=== PATIENT | male | born 1945 | race Caucasian/White ===

== ENCOUNTER → 2017-08-30 | Outpatient (CLI) | payer BC ==
[~2017-08-30] MED LIST: ASPCH81; ATEN-173; BSP5; NAPR1TAB48; RANI75TA7; VYT1010
== END | disposition home or self-care (01) ==
LOC: C.PATHSPEC 17:52
PROVIDERS: ATTEND Plastic Surgery
DX: L72.0 Epidermal cyst (principal)

== ENCOUNTER 2018-11-02 17:48 | Inpatient (IN) ==
[2018-11-02] MEDS ORDERED: ONDANSETRON INJ 2 MG/ML 2 ML VIAL IV STA ×2 (18:04→21:11)
[2018-11-02] MEDS: HYDROmorphone INJ 1 MG/ML SYRINGE IV PRN ×2 (18:13→20:04)
[2018-11-02 18:24] LABS: Basophils # (auto) 0.01 K/uL (0-0.2); Basophils % (auto) 0.1 %; Eosinophils # (auto) 0.06 K/uL (0-0.5); Eosinophils % (auto) 0.5 %; Hematocrit (blood only) 43.9 % (42-52); Hemoglobin 15.6 g/dL (14.0-18.0); Immature Granulocytes # (auto) 0.03 K/uL (0.00-0.02); Immature Granulocytes % (auto) 0.2 %; Lymphocytes # (auto) 1.26 K/uL (1.2-3.4); Lymphocytes % (auto) 9.9 %; Mean Corpuscular Hgb Conc 35.5 g/dL (32-36); Mean Corpuscular Volume 91.8 fL (80-100); Monocytes # (auto) 0.66 K/uL (0.11-0.59); Monocytes % (auto) 5.2 %; Neutrophils # (auto) 10.66 K/uL (1.4-6.5); Neutrophils % (auto) 84.1 %; Platelet Count 197 K/uL (130-400); RDW Coefficient of Variation 12.3 % (11.5-14.5); RDW Standard Deviation 41.6 fL (36.4-46.3); Red Blood Count 4.78 M/uL (4.7-6.1); White Blood Count 12.68 K/uL (4.8-10.8)
[2018-11-02 18:44] LABS: Albumin Level 3.9 gm/dl (3.4-5.0); BUN Creatinine Ratio 12.9 (10-20); Est GFR (African American) 58.3; Est GFR (Non-African American) 50.3; Potassium 4.3 mmol/L (3.5-5.1)
[2018-11-02 18:47] LABS: Albumin Globulin Ratio 1.1 (0.9-2); Globulin 3.5 gm/dl (2.5-4.0); Total Protein 7.4 gm/dl (6.4-8.2)
--- NOTE | 2018-11-02 19:12 | CT Scan Report ---
ABDOMEN AND PELVIS CT WITHOUT CONTRAST CT DOSE: 666.87 mGy.cm HISTORY: mid abd pain TECHNIQUE: Multiaxial CT images of the abdomen and pelvis were performed without contrast. A dose lo wering technique was utilized adhering to the principles of ALARA. COMPARISON STUDY: None. FINDINGS: Mild dependent changes seen at the lung bases. No pneumoperitoneum. No pneumatosis. Postste rnotomy changes. The heart is mildly enlarged. Tiny fat-containing umbilical hernia. Small fat-contai julia right inguinal hernia. The unenhanced liver, gallbladder, spleen, adrenal glands, and pancreas a re unremarkable. No retroperitoneal lymphadenopathy. Calcified plaque within the normal caliber abdom inal aorta. No renal stones or hydronephrosis. Normal bladder. Colonic diverticulosis. No evidence fo r diverticulitis. Multiple dilated and fluid-filled loops of proximal to mid small bowel with a focal transition point within the right midabdomen best seen on image 303. The bowel loops are dilated up to 4.6 cm. Therefore, this is consistent with a small bowel obstruction at the level of the distal je junum. The appendix not identified and may be surgically absent. IMPRESSION: 1. Small bowel obstruction with the transition point located at the distal jejunum within the right m id abdomen as described above. This favors an adhesion. 2. Colonic diverticulosis. No evidence for diverticulitis. 3. No renal stones or hydronephrosis. Electronically signed by: Perez Fernandez M.D. 11/02/2018 7:11 PM
--- NOTE | 2018-11-02 19:54 | Emergency Department Note ---
Entered by Lesley Raya acting as a scribe for Elliott Gardner MD ED Provider Note CHIEF COMPLAINT: Abdominal pain HISTORY OF PRESENT ILLNESS: The patient is a 73 year old male with a history of a CABG x 3, CAD, and ruptured spleen who presents to the Emergency Room with complaints of worsening periumbilical abdominal pain starting around noon today. The patient reports that the onset of his abdominal pain was followed by diarrhea, 4 episodes of vomiting, left kidney pain, and slight lightheadedness. He currently rates his abdominal pain a 9/10 and states that he has not taken anything for his pain. He notes that he has experienced similar symptoms in the past but is unsure of their etiology. He denies any recent sick contact. Pt denies LOC, headache, fevers, chills, diaphoresis, visual changes, neck pain , chest pain, breathing difficulties, nausea, back pain, melena, hematochezia, urinary symptoms, numbness, weakness, lymphadenopathy, rash, swollen glands, or other complaints. REVIEW OF SYSTEMS: See HPI for pertinent positives and negatives. A total of ten systems were reviewed and were otherwise negative. PMHx/PSHx: CABG x 3, coronary artery disease, ruptured spleen. SOCIAL HISTORY: Patient lives at home. PHYSICAL EXAM: GENERAL: Awake, alert, uncomfortable-appearing, in no distress HENT: Normocephalic, atraumatic. Oropharynx unremarkable. EYES: Normal conjunctiva. Sclera non-icteric. NECK: Inspection normal. Non-tender. Supple. No nuchal rigidity. FROM. No masses. RESPIRATORY: Clear to auscultation. No wheezes. No rales. Normal respiratory effort. CARDIAC: Normal rate. Borderline bradycardic rhythm. No murmurs. No rubs. Extremities warm and well perfused. Pulses equal. No JVD. GI: Soft, non-distended. No rebound. No masses. Moderate left lower quadrant, left upper quadrant, and right upper quadrant tenderness. Significant periumbilical tenderness. Guarding. RECTAL: Deferred. MUSCULOSKELETAL: Atraumatic. Chest examination reveals no tenderness. The back is symmetrical on inspection without obvious abnormality. There is no CVA tenderness to palpation. No joint edema. LOWER EXTREMITIES: Calves are equal size bilaterally and non-tender. No edema. No discoloration. NEURO: Normal sensorium. No sensory or motor deficits noted. SKIN: No rash or jaundice noted. EMERGENCY DEPARTMENT COURSE: 1802: Past medical records reviewed. The patient was evaluated in room C12B, and a complete history and physical examination were performed. 1911: I checked on the patient and updated him on his test results. 1916: I reviewed the patient's case with Dr. Govea - [facility]. Dr. Govea recommends an NG tube, NPO, and admission to medicine. He stated that he will see the patient in consultation. 2010: I reviewed the patient's case with Dr. Isaacs - Hospitalist, [facility]. Dr. Isaacs will evaluate the patient for further management. MEDICAL DECISION MAKING: Triage Nursing notes reviewed. The patient's presentation and history were concerning for abdominal pain. Etiologies such as appendicitis, diverticulitis, obstruction, inflammatory bowel disease, renal colic, PUD, biliary pathology, pancreatitis, mesenteric ischemia, aortic pathology, infections, genitourinary, UTI, perforated viscus, as well as others were entertained. Patient was evaluated. He was quite tender and uncomfortable. He was given IV Zofran and Dilaudid. His ECG did not show any acute ischemic change. The patient felt better after medications. He had a mild leukocytosis on CBC. Remainder of labs are unremarkable. The patient underwent CT imaging and this revealed a bowel obstruction. I did consult with Dr. Govea of general surgery. He recommended NG tube placement admission to medicine. He will see him in consultation. A consultation was placed with the [facility]ist service. Patient was evaluated in the ER for further management. IMPRESSION: Small bowel obstruction PLAN: Admit The scribe's documentation has been prepared under my direction and personally reviewed by me in its entirety. I confirm that the note above accurately reflects all work, treatment, procedures, and medical decision making performed by me. Impression & Plan Small bowel obstruction Past Med/Surg History Medical History Ruptured spleen Coronary artery disease (Chronic) Anxiety GERD (gastroesophageal reflux disease) Hyperlipidemia Hypertension Surgical History S/P CABG (coronary artery bypass graft) (Resolved) History of right inguinal hernia repair History of rotator cuff surgery S/P splenectomy Social History marital status: Current Living Situation: Spouse current occupational status: retired Feels Safe at Home: Yes Safety Concerns: Feels Safe At This Time Smoking Status: Former smoker Do You Dip or Chew Tobacco: No Second Hand Exposure: No Tobacco Cessation Education Requested by Patient: No Hx Alcohol Use: No Hx Substance Use: No Beliefs That Will Affect Care: None Preferred Language: [place] Communication Ability: Effective 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 Results & Data Vital Signs Vital Signs - 24 hr 11/02/18 17:50 11/02/18 18:16 11/02/18 18:18 Temperature 37 C Temperature Source Oral Sepsis Recent Fever Within 48 Hours No Sepsis Action Taken by Nursing No Action Required Pulse Rate 59 L 54 L 58 L Pulse Rate [Apical] Pulse Rate [Right Finger] Pulse Rhythm Regular Regular Pulse Rhythm [Apical] Pulse Rhythm [Right Finger] Pulse Strength Normal Pulse Strength [Right Finger] Respiratory Rate 22 24 20 Respiratory Effort / Characteristics Non-Labored Spontaneous Respiratory Depth Normal Respiratory Pattern Regular Blood Pressure 147/75 H Blood Pressure [Left Arm] Blood Pressure Mean 99 Blood Pressure Mean [Left Arm] Blood Pressure Position [Left Arm] Pulse Oximetry 94 95 94 Oxygen Delivery Method Room Air Nasal Cannula Room Air Oxygen Flow Rate 11/02/18 18:55 11/02/18 18:56 11/02/18 19:00 Temperature Temperature Source Sepsis Recent Fever Within 48 Hours Sepsis Action Taken by Nursing Pulse Rate 78 76 79 Pulse Rate [Apical] 73 Pulse Rate [Right Finger] Pulse Rhythm Pulse Rhythm [Apical] Regular Pulse Rhythm [Right Finger] Pulse Strength Pulse Strength [Right Finger] Respiratory Rate 24 20 22 Respiratory Effort / Characteristics Non-Labored Spontaneous Respiratory Depth Normal Respiratory Pattern Regular Blood Pressure 138/73 Blood Pressure [Left Arm] 138/73 Blood Pressure Mean 94 Blood Pressure Mean [Left Arm] 94 Blood Pressure Position [Left Arm] Semi-fowlers Pulse Oximetry 96 Oxygen Delivery Method Nasal Cannula Nasal Cannula Nasal Cannula Oxygen Flow Rate 3 11/02/18 19:01 11/02/18 19:30 11/02/18 19:31 Temperature Temperature Source Sepsis Recent Fever Within 48 Hours Sepsis Action Taken by Nursing Pulse Rate 77 67 76 Pulse Rate [Apical] Pulse Rate [Right Finger] Pulse Rhythm Pulse Rhythm [Apical] Pulse Rhythm [Right Finger] Pulse Strength Pulse Strength [Right Finger] Respiratory Rate 21 30 H 27 H Respiratory Effort / Characteristics Respiratory Depth Respiratory Pattern Blood Pressure 130/67 153/59 H Blood Pressure [Left Arm] Blood Pressure Mean 88 90 Blood Pressure Mean [Left Arm] Blood Pressure Position [Left Arm] Pulse Oximetry 89 L 96 96 Oxygen Delivery Method Nasal Cannula Nasal Cannula Nasal Cannula Oxygen Flow Rate 11/02/18 19:32 11/02/18 20:00 11/02/18 20:01 Temperature Temperature Source Sepsis Recent Fever Within 48 Hours Sepsis Action Taken by Nursing Pulse Rate 74 70 57 L Pulse Rate [Apical] Pulse Rate [Right Finger] Pulse Rhythm Pulse Rhythm [Apical] Pulse Rhythm [Right Finger] Pulse Strength Pulse Strength [Right Finger] Respiratory Rate 23 21 21 Respiratory Effort / Characteristics Respiratory Depth Respiratory Pattern Blood Pressure 122/75 Blood Pressure [Left Arm] Blood Pressure Mean 90 Blood Pressure Mean [Left Arm] Blood Pressure Position [Left Arm] Pulse Oximetry 96 95 Oxygen Delivery Method Nasal Cannula Nasal Cannula Oxygen Flow Rate 11/02/18 20:02 11/02/18 20:30 11/02/18 20:31 Temperature Temperature Source Sepsis Recent Fever Within 48 Hours Sepsis Action Taken by Nursing Pulse Rate 61 57 L 56 L Pulse Rate [Apical] Pulse Rate [Right Finger] Pulse Rhythm Pulse Rhythm [Apical] Pulse Rhythm [Right Finger] Pulse Strength Pulse Strength [Right Finger] Respiratory Rate 16 30 H 21 Respiratory Effort / Characteristics Respiratory Depth Respiratory Pattern Blood Pressure 137/76 Blood Pressure [Left Arm] Blood Pressure Mean 96 Blood Pressure Mean [Left Arm] Blood Pressure Position [Left Arm] Pulse Oximetry 96 95 95 Oxygen Delivery Method Nasal Cannula Nasal Cannula Nasal Cannula Oxygen Flow Rate 11/02/18 21:00 11/02/18 21:01 11/02/18 21:02 Temperature Temperature Source Sepsis Recent Fever Within 48 Hours Sepsis Action Taken by Nursing Pulse Rate 56 L 56 L 65 Pulse Rate [Apical] Pulse Rate [Right Finger] Pulse Rhythm Pulse Rhythm [Apical] Pulse Rhythm [Right Finger] Pulse Strength Pulse Strength [Right Finger] Respiratory Rate 21 23 30 H Respiratory Effort / Characteristics Respiratory Depth Respiratory Pattern Blood Pressure 164/77 H Blood Pressure [Left Arm] Blood Pressure Mean 106 Blood Pressure Mean [Left Arm] Blood Pressure Position [Left Arm] Pulse Oximetry 97 97 96 Oxygen Delivery Method Nasal Cannula Nasal Cannula Nasal Cannula Oxygen Flow Rate 11/02/18 21:30 11/02/18 21:31 11/02/18 22:14 Temperature Temperature Source Sepsis Recent Fever Within 48 Hours Sepsis Action Taken by Nursing Pulse Rate 58 L 60 63 Pulse Rate [Apical] Pulse Rate [Right Finger] Pulse Rhythm Pulse Rhythm [Apical] Pulse Rhythm [Right Finger] Pulse Strength Pulse Strength [Right Finger] Respiratory Rate 20 28 H 24 Respiratory Effort / Characteristics Respiratory Depth Respiratory Pattern Blood Pressure 155/86 H 156/79 H Blood Pressure [Left Arm] Blood Pressure Mean 109 Blood Pressure Mean [Left Arm] Blood Pressure Position [Left Arm] Pulse Oximetry 96 97 97 Oxygen Delivery Method Nasal Cannula Nasal Cannula Nasal Cannula Oxygen Flow Rate 3 11/02/18 22:34 11/02/18 23:30 Temperature 36.7 C Temperature Source Oral Sepsis Recent Fever Within 48 Hours Sepsis Action Taken by Nursing Pulse Rate Pulse Rate [Apical] Pulse Rate [Right Finger] 60 Pulse Rhythm Pulse Rhythm [Apical] Pulse Rhythm [Right Finger] Regular Pulse Strength Pulse Strength [Right Finger] Normal Respiratory Rate 18 Respiratory Effort / Characteristics Non-Labored Spontaneous Respiratory Depth Normal Respiratory Pattern Regular Blood Pressure Blood Pressure [Left Arm] 153/81 H Blood Pressure Mean Blood Pressure Mean [Left Arm] 105 Blood Pressure Position [Left Arm] Lying Pulse Oximetry 94 Oxygen Delivery Method Nasal Cannula Nasal Cannula Oxygen Flow Rate 3 3 Home Medications Current Medication List: was personally reviewed by me Laboratory Data Attestation: I reviewed the patient's lab results. Result diagrams: 11/02/18 18:09 11/02/18 18:09 Lab Results 11/02/18 11/02/18 Range/Units 18:09 18:09 WBC 12.68 H (4.8-10.8) K/uL RBC 4.78 (4.7-6.1) M/uL Hgb 15.6 (14.0-18.0) g/dL Hct 43.9 (42-52) % MCV 91.8 (80-100) fL MCH 32.6 (25-34) pg MCHC 35.5 (32-36) g/dL RDW Std Deviation 41.6 (36.4-46.3) fL RDW Coeff of Bk 12.3 (11.5-14.5) % Plt Count 197 (130-400) K/uL MPV 10.0 (7.4-10.4) fL Immature Gran % (Auto) 0.2 % Neut % (Auto) 84.1 % Lymph % (Auto) 9.9 % [place] % (Auto) 5.2 % Eos % (Auto) 0.5 % Baso % (Auto) 0.1 % Immature Gran # (Auto) 0.03 H (0.00-0.02) K/uL Neut # (Auto) 10.66 H (1.4-6.5) K/uL Lymph # (Auto) 1.26 (1.2-3.4) K/uL [place] # (Auto) 0.66 H (0.11-0.59) K/uL Eos # (Auto) 0.06 (0-0.5) K/uL Baso # (Auto) 0.01 (0-0.2) K/uL Sodium 137 (136-145) mmol/L Potassium 4.3 (3.5-5.1) mmol/L Chloride 102 (98-107) mmol/L Carbon Dioxide 29 (21-32) mmol/L Anion Gap 6.0 (3-11) BUN 18 (7-18) mg/dl Creatinine 1.39 (0.6-1.4) mg/dl Est Cr Clr Drug Dosing 55.0 ml/min Est GFR ( Amer) 58.3 Est GFR (Non-Af Amer) 50.3 BUN/Creatinine Ratio 12.9 (10-20) Glucose 169 H (70-99) mg/dl Calcium 9.0 (8.5-10.1) mg/dl Total Bilirubin 1.0 (0.1-1) mg/dl AST 20 (15-37) U/L ALT 50 (12-78) U/L Alkaline Phosphatase 81 (45-117) U/L Total Protein 7.4 (6.4-8.2) gm/dl Albumin 3.9 (3.4-5.0) gm/dl Globulin 3.5 (2.5-4.0) gm/dl Albumin/Globulin Ratio 1.1 (0.9-2) Lipase 115 (73-393) U/L Administered Medications Hydromorphone HCl (Dilaudid) 0.5 mg IV Q2H PRN PRN Reason: Pain Stop: 11/16/18 21:33 Last Admin: 11/03/18 01:22 Dose: 0.5 mg Sodium Chloride (Nss 1000ml) 1,000 mls @ 100 mls/hr IV .Q10H LIBBY Stop: 12/02/18 22:33 Last Infusion: 11/03/18 00:05 Dose: 100 mls/hr Infusion: 11/02/18 23:29 Dose: 0 mls/hr Admin: 11/02/18 23:29 Dose: 100 mls/hr Ondansetron HCl (Zofran) 4 mg IV Q4H PRN PRN Reason: Nausea Stop: 12/02/18 21:33 Last Admin: 11/03/18 01:22 Dose: 4 mg Discontinued Medications Hydromorphone HCl (Dilaudid) 1 mg IV Q15M PRN PRN Reason: Pain Stop: 11/16/18 18:03 Last Admin: 11/02/18 20:04 Dose: 1 mg Admin: 11/02/18 18:13 Dose: 1 mg Piperacillin Sod/Tazobactam (Sod 3.375 gm/ Dextrose) 115 mls @ 230 mls/hr IV NOW ONE; Protocol Stop: 11/02/18 23:14 Last Infusion: 11/03/18 00:05 Dose: 0 mls/hr Admin: 11/02/18 23:29 Dose: 230 mls/hr Ondansetron HCl (Zofran) 4 mg IV NOW STA Stop: 11/02/18 18:05 Last Admin: 11/02/18 18:14 Dose: 4 mg Ondansetron HCl (Zofran) Confirm Administered Dose 4 mg .ROUTE .STK-MED ONE Stop: 11/02/18 21:11 Last Admin: 11/02/18 21:12 Dose: 4 mg Ondansetron HCl (Zofran) 4 mg IV NOW STA Stop: 11/02/18 21:12 Last Admin: 11/02/18 21:25 Dose: Not Given Prochlorperazine (Compazine) Confirm Administered Dose 10 mg .ROUTE .STK-MED ONE Stop: 11/02/18 21:47 Last Admin: 11/02/18 21:55 Dose: 10 mg Imaging Data Radiologist's Impression: Radiology results as stated below per my review and the radiologist's interpretation: ABDOMEN AND PELVIS CT WITHOUT CONTRAST CT DOSE: 666.87 mGy.cm HISTORY: mid abd pain TECHNIQUE: Multiaxial CT images of the abdomen and pelvis were performed without contrast. A dose lowering technique was utilized adhering to the principles of ALARA. COMPARISON STUDY: None. FINDINGS: Mild dependent changes seen at the lung bases. No pneumoperitoneum. No pneumatosis. Poststernotomy changes. The heart is mildly enlarged. Tiny fat- containing umbilical hernia. Small fat-containing right inguinal hernia. The unenhanced liver, gallbladder, spleen, adrenal glands, and pancreas are unremarkable. No retroperitoneal lymphadenopathy. Calcified plaque within the normal caliber abdominal aorta. No renal stones or hydronephrosis. Normal bladder. Colonic diverticulosis. No evidence for diverticulitis. Multiple dilated and fluid-filled loops of proximal to mid small bowel with a focal transition point within the right midabdomen best seen on image 303. The bowel loops are dilated up to 4.6 cm. Therefore, this is consistent with a small bowel obstruction at the level of the distal jejunum. The appendix not identified and may be surgically absent. IMPRESSION: 1. Small bowel obstruction with the transition point located at the distal jejunum within the right mid abdomen as described above. This favors an adhesion. 2. Colonic diverticulosis. No evidence for diverticulitis. 3. No renal stones or hydronephrosis. Electronically signed by: Perez Fernandez M.D. 11/02/2018 7:11 PM ECG Data Attestation: I personally reviewed and interpreted this ECG as follows: Indication: abdominal pain Rate (beats per minute): 51 Rhythm: sinus bradycardia Findings: + 1st degree AV block and + Q waves (inferior); no PAC, no PVC, no ST depression and no ST elevation Blood Pressure Blood Pressure Findings: Normal blood pressure Discharge Plan Visit Data *Final* Discharge Date/Time: 11/02/18 22:14 Chief Complaint: Abdominal Pain Stated Complaint: ABDOMINAL PAIN, VOMITING, DIARRHEA ED Provider: Elliott Gardner Discharge Problem: Small bowel obstruction Patient Disposition: Admitted As Inpatient Discharge Instructions Interventions: ED Discharge Assessment Last Done: 11/02/18 22:14 The scribe's documentation has been prepared under my direction and personally reviewed by me in its entirety. I confirm that the note above accurately reflects all work, treatment, procedures, and medical decision making performed by me.
[2018-11-02] MEDS ORDERED: CANNULA ONE (19:58)
--- NOTE | 2018-11-02 21:08 | History & Physical Report ---
Addendum entered and electronically signed by Arnaldo Francis MD 11/02/18 22:03 : Addendum (Blank) Addendum November 02, 2018 22:02 2200: In discussion with Dr. Isaacs, will start on Zosyn every 6 hours in case of an intra-abdominal infectious issue with his concurrent SBO. Original Note: Date of Service November 02, 2018 Assessment & Plan (1) Small bowel obstruction: 73-year-old male was admitted on 02 November 2018 for abdominal pain beginning then progressively worsening from noon onwards on day of admit. Small bowel obstruction: As suggested by his pain, N/V, as well as CT a/p noncon. Patient notes a long history of the same following splenic rupture ( and related surgeries) as a young child. Presently afebrile, not tachycardic, but does have minimal leukocytosis to 12.7. Treated in ED with Dilaudid and Zofran. They discussed his case with Dr. Govea (general surgery) who recommended NG tube placement (placed in ED), admit to medicine service, and for him to see the patient in consultation. - Pain and nausea control with Dilaudid and Zofran respectively. - General surgery consult placed. Frequent loose stools: Patient says he has had at least two loose non-bloody stools daily for years now. Apparently only prior workup was to modify his diet. He wonders if this can be evaluated during this hospitalization as well. - We will order some basic stool studies. - Spoke with patient and stated once his small bowel obstruction is resolved this can be further addressed either acutely as an outpatient or as an inpatient (if possible). Ongoing medical issues: - Hypertension: On home losartan 100 mg daily. Will hold for now due to NPO. - Anxiety: On home buspirone 10 mg twice daily. Will hold for now due to NPO. - Hyperlipidemia: On home atorvastatin 80 mg daily. Will hold for now due to NPO. - CAD: On home aspirin 81 mg daily. Will hold for now due to NPO. - GERD: On home ranitidine 300 mg every morning. Will hold for now due to NPO. Started Protonix 40 mg IV daily. Diverticulosis: As seen on CT a/p without evidence of diverticulitis. Code status: Full code. Diet: NPO with NGT in place (low intermittent suction). DVT prophy: Lovenox 40 mg sc daily. Also SCD�s. PT/OT: Deferred. Disbo: Admit to medsurg. (2) Frequent loose stools: (3) Hypertension: (4) Anxiety: (5) Hyperlipidemia: (6) Coronary artery disease: (7) GERD (gastroesophageal reflux disease): History of Present Illness Primary Care Provider: Marianna Keating 73-year-old male states that around noon today he developed some severe periumbilical abdominal pain that built in intensity throughout the day. He says he has a history of somewhat similar on and off weekly episodes of abdominal pain that are more mild than today and usually resolves within an hour. He notes four episodes of vomiting earlier, some loose stools, and some left flank pain. He presents today because his pain is more severe than it has ever been before. No known fevers, trauma, acute pain elsewhere, or other acute concerns. Allergies Allergy/AdvReac Type Severity Reaction Status Date / Time No Known Allergies Allergy Verified 11/02/18 18:17 Home Medications Home Medications Medication Instructions Recorded Confirmed Type aspirin 81 mg PO DAILY 11/02/18 11/02/18 History atorvastatin 80 mg PO DAILY 11/02/18 11/02/18 History buspirone 10 mg PO BID 11/02/18 11/02/18 History losartan 100 mg PO DAILY 11/02/18 11/02/18 History ranitidine HCl 300 mg PO QAM 11/02/18 11/02/18 History Past Med/Surg History Medical History Ruptured spleen Coronary artery disease (Chronic) Anxiety GERD (gastroesophageal reflux disease) Hyperlipidemia Hypertension Surgical History S/P CABG (coronary artery bypass graft) (Resolved) History of right inguinal hernia repair History of rotator cuff surgery S/P splenectomy Social History marital status: Current Living Situation: Spouse current occupational status: retired Feels Safe at Home: Yes Safety Concerns: Feels Safe At This Time Smoking Status: Former smoker Do You Dip or Chew Tobacco: No Second Hand Exposure: No Tobacco Cessation Education Requested by Patient: No Hx Alcohol Use: No Hx Substance Use: No Beliefs That Will Affect Care: None Preferred Language: Urdu Communication Ability: Effective 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 Musculoskeletal: Denies any acute extremity pains, myalgias, or focal weakness Skin: Denies any known acute rashes or lesions Neuro: Denies any headache, acute focal weakness or numbness, or difficulties with speech or swallow. Psych: Denies any acute depression or anxiety Physical Exam 2 Vital Signs (Past 24 Hours): Last Vital Signs Temp 37 C 11/02/18 17:50 Pulse 57 L 11/02/18 20:01 Resp 21 11/02/18 20:01 BP 122/75 11/02/18 20:01 Pulse Ox 95 11/02/18 20:01 Physical Exam: GENERAL: Awake, alert, well-appearing, in no distress HENT: Normocephalic, atraumatic. Oropharynx unremarkable. EYES: Normal conjunctiva. Sclera non-icteric. NECK: Inspection normal. Non-tender. Supple and full ROM. No nuchal rigidity. CARDIAC: +S1S2 borderline but regular bradycardia, no murmurs. RESPIRATORY: Clear to auscultation. No wheezes or rales. Normal respiratory effort. GI: +BS, soft, questionably distended. Mild generalized tenderness to palpation. Nontender to percussion and no guarding. EXTREMITIES: No pedal edema or calf tenderness. Moving all extremities naturally and easily. NEURO: No gross neuro deficits. Lines: Left nare NG tube in place. Right PIV. Results & Data Laboratory Results 11/02/18 11/02/18 Range/Units 18:09 18:09 WBC 12.68 H (4.8-10.8) K/uL RBC 4.78 (4.7-6.1) M/uL Hgb 15.6 (14.0-18.0) g/dL Hct 43.9 (42-52) % MCV 91.8 (80-100) fL MCH 32.6 (25-34) pg MCHC 35.5 (32-36) g/dL RDW Std Deviation 41.6 (36.4-46.3) fL RDW Coeff of Bk 12.3 (11.5-14.5) % Plt Count 197 (130-400) K/uL MPV 10.0 (7.4-10.4) fL Immature Gran % (Auto) 0.2 % Neut % (Auto) 84.1 % Lymph % (Auto) 9.9 % [place] % (Auto) 5.2 % Eos % (Auto) 0.5 % Baso % (Auto) 0.1 % Immature Gran # (Auto) 0.03 H (0.00-0.02) K/uL Neut # (Auto) 10.66 H (1.4-6.5) K/uL Lymph # (Auto) 1.26 (1.2-3.4) K/uL [place] # (Auto) 0.66 H (0.11-0.59) K/uL Eos # (Auto) 0.06 (0-0.5) K/uL Baso # (Auto) 0.01 (0-0.2) K/uL Sodium 137 (136-145) mmol/L Potassium 4.3 (3.5-5.1) mmol/L Chloride 102 (98-107) mmol/L Carbon Dioxide 29 (21-32) mmol/L Anion Gap 6.0 (3-11) BUN 18 (7-18) mg/dl Creatinine 1.39 (0.6-1.4) mg/dl Est Cr Clr Drug Dosing 55.0 ml/min Est GFR ( Amer) 58.3 Est GFR (Non-Af Amer) 50.3 BUN/Creatinine Ratio 12.9 (10-20) Glucose 169 H (70-99) mg/dl Calcium 9.0 (8.5-10.1) mg/dl Total Bilirubin 1.0 (0.1-1) mg/dl AST 20 (15-37) U/L ALT 50 (12-78) U/L Alkaline Phosphatase 81 (45-117) U/L Total Protein 7.4 (6.4-8.2) gm/dl Albumin 3.9 (3.4-5.0) gm/dl Globulin 3.5 (2.5-4.0) gm/dl Albumin/Globulin Ratio 1.1 (0.9-2) Lipase 115 (73-393) U/L Diagnostic Findings ABDOMEN AND PELVIS CT WITHOUT CONTRAST IMPRESSION: 1. Small bowel obstruction with the transition point located at the distal jejunum within the right mid abdomen as described above. This favors an adhesion. 2. Colonic diverticulosis. No evidence for diverticulitis. 3. No renal stones or hydronephrosis. Code Status & VTE Plan Code Status Full code VTE Prophylaxis Plan VTE Prophylaxis will be ordered: Yes Supervising Physician Co-Signing Physician Notes Attending Addendum: I have physically seen and examined this patient, have supervised the medical residents activities, and agree with the H&P as noted above with the following exceptions as noted. The patient denies chest pain, palpitations, shortness of breath, cough, lower extremity swelling, vision change, hearing change, sore throat, fevers, chills, sweats, weight change, fatigue, nausea, vomiting, diarrhea or constipation, abdominal pain, pelvic pain, blood in urine or stool, dysuria, urinary frequency or urgency, lightheadedness, dizziness, headache, memory loss, rash, abnormal bruising or bleeding, imbalance, focal or generalized weakness, numbness or tingling in arms or legs, generalized arthralgias or myalgias, back or neck pain, night sweats, or allergy symptoms. The review of systems is otherwise negative other than for that already noted above, and at least 10 systems have been reviewed. Attending addendum: I have physically seen this patient, have supervised the medical residents activities, and agree with the H&P unless as otherwise noted. 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 NPO. Continue NG tube to low intermittent suction. Pantoprazole 40 mg IV daily Zofran 4 mg IV every 6 hours as needed Zosyn 3.375 mg IV every 8 hours Acetaminophen 1000 mg IV every 8 hours as needed mild pain or temperature. Morphine sulfate 2 mg IV every 2 hours as needed moderate to severe pain. Consult general surgery Acute kidney injury-- Labs all points to dehydration with elevated WBC, hemoglobin, platelets, creatinine, calcium and glucose. NSS 100 mils per hour. Repeat laboratories in the a.m. Remainder of orders and notations as noted. Resident Activity Tracking Resident Involvement: Resident Care Provided Care Provided: [facility] Medicine
[2018-11-02] MEDS ORDERED: ONDANSETRON INJ 2 MG/ML 2 ML VIAL ONE (21:10)
[2018-11-02] MEDS ORDERED: PROCHLORPERAZINE 5 MG/ML 2 ML VIAL ONE (21:46)
[2018-11-02] MEDS ORDERED: PROCHLORPERAZINE 5 MG/ML 2 ML VIAL IV PRN (21:47)
[2018-11-02] MEDS ORDERED: PIPERACILL/TAZOBAC CONSULT ACTIVE PRN (22:00)
[2018-11-02] MEDS ORDERED: PIPERACILLIN/TAZOBACTAM 3.375 GM/115 ML BAG IV SCH (22:00)
[2018-11-02] MEDS ORDERED: PROCHLORPERAZINE 10 MG in SYRINGE 8 ML IV PRN (22:41)
[2018-11-02] MEDS ORDERED: PIPERACILLIN/TAZOBACTAM 3.375 GM in DEXTROSE 5% 100 ML IV ONE (22:45)
[2018-11-02] MEDS: SODIUM CHLORIDE 0.9% 1000ML 1,000 ML IV SCH (23:29)
[2018-11-03] MEDS: ONDANSETRON INJ 2 MG/ML 2 ML VIAL IV PRN ×2 (01:22→16:02)
[2018-11-03] MEDS: HYDROmorphone INJ 0.5 MG/0.5 ML SYR IV PRN ×5 (01:22→21:59)
[2018-11-03] MEDS: PIPERACILLIN/TAZOBACTAM 3.375 GM in DEXTROSE 5% 100 ML IV SCH ×3 (04:49→19:59)
[2018-11-03 05:08] LABS: Appearance Urine Clear (Clear); Bilirubin Urine Negative (Negative); Color Urine Yellow; Glucose Urine UA Trace (Negative); Ketones Urine Negative (Negative); Leukocyte Esterase Urine Negative (Negative); Nitrite Urine Negative (Negative); Protein Urine Negative (Negative); Specific Gravity Urine 1.027 (1.000-1.030); Urobilinogen Urine Negative (Negative)
[2018-11-03 06:41] LABS: Basophils # (auto) 0.01 K/uL (0-0.2); Basophils % (auto) 0.1 %; Eosinophils # (auto) 0.01 K/uL (0-0.5); Eosinophils % (auto) 0.1 %; Hematocrit (blood only) 41.7 % (42-52); Hemoglobin 14.7 g/dL (14.0-18.0); Immature Granulocytes # (auto) 0.02 K/uL (0.00-0.02); Immature Granulocytes % (auto) 0.2 %; Lymphocytes # (auto) 1.41 K/uL (1.2-3.4); Lymphocytes % (auto) 12.7 %; Mean Corpuscular Hgb Conc 35.3 g/dL (32-36); Mean Corpuscular Volume 92.7 fL (80-100); Monocytes # (auto) 1.25 K/uL (0.11-0.59); Monocytes % (auto) 11.3 %; Neutrophils # (auto) 8.38 K/uL (1.4-6.5); Neutrophils % (auto) 75.6 %; Platelet Count 192 K/uL (130-400); RDW Coefficient of Variation 12.5 % (11.5-14.5); RDW Standard Deviation 42.2 fL (36.4-46.3); White Blood Count 11.08 K/uL (4.8-10.8)
[2018-11-03 07:12] LABS: BUN Creatinine Ratio 13.5 (10-20); Calcium 8.5 mg/dl (8.5-10.1); Creatinine Clr Calc Pharmacy 60.2 ml/min; Est GFR (Non-African American) 56.1
[2018-11-03 08:03] LABS: INR 1.1 (0.9-1.1); Prothrombin Time 10.6 Seconds (9.0-12.0)
[2018-11-03] MEDS: SODIUM CHLORIDE 0.9% 1000ML 1,000 ML IV SCH ×2 (08:20→17:51)
[2018-11-03] MEDS: ENOXAPARIN INJ 40 MG/0.4 ML SYR SQ SCH (08:33)
--- NOTE | 2018-11-03 09:26 | Hospitalist Progress Note ---
Date of Service November 03, 2018 Assessment & Plan (1) Small bowel obstruction: h/o multiple SBO, had surgeries related to splenic rupture when he was young which causes adhesion CT abdomen/pelvis shows transition point around terminal ileum continue NGT to low intermittent suction await general surgery recommendations continue NPO, IV fluids, IV Zosyn, WBC down to 11k Cr and electrolytes stable IV pain control once okay with surgery would promote ambulations no flatus or BM today hopefully this will resolve with conservative measures (2) Frequent loose stools: Frequent loose stools: Patient says he has had at least two loose non- bloody stools daily for years now. Apparently only prior workup was to modify his diet. He wonders if this can be evaluated during this hospitalization as well. given that he is here for SBO would likely not work up chronic loose stools should be referred to GI as outpatient by his PCP (3) Hypertension: continue to hold Losartan given NPO status BP stable at 138/78 this morning (4) Anxiety: On home buspirone 10 mg twice daily. Will hold for now due to NPO. mood stable (5) Hyperlipidemia: On home atorvastatin 80 mg daily. Will hold for now due to NPO. (6) Coronary artery disease: On home aspirin 81 mg daily. Will hold for now due to NPO. no chest pain or pressure reported (7) GERD (gastroesophageal reflux disease): On home ranitidine 300 mg every morning. Will hold for now due to NPO. Started Protonix 40 mg IV daily. (8) DVT prophylaxis: Lovenox continue conservative measures await general surgery consult Subjective patient feeling a little better, less abdominal pain NGT draining dark, bilious fluid abdomen feels a little less distended, he is still requiring pain medications no dyspnea, no chest pain, no nausea with NGT in place he says that ambulating has helped in the past once NGT draining less could consider clamping it and promoting ambulation reviewed labs, WBC 11k, K is normal at 4.0, Cr is normal vitals stable discussed that general surgery would be rounding on him as well updated at the bedside Review of Systems All systems reviewed & are unremarkable except as noted in HPI & below Gastrointestinal: + abdominal pain (distended) and + constipation (no flatus, no BM); no nausea and no vomiting Physical Exam 2 Vital Signs (Past 24 Hours): Last Vital Signs Temp 36.6 C 11/03/18 07:14 Pulse 78 11/03/18 07:14 Resp 16 11/03/18 07:14 BP 138/78 11/03/18 07:14 Pulse Ox 94 11/03/18 07:14 Constitutional: WD/WN, vitals as above Eyes: PERRL, conjunctivae normal, anicteric sclerae ENMT: external ear and nose normal, oropharynx normal Neck: trachea midline, no thyromegaly Respiratory: normal respiratory effort, lungs clear to auscultation Cardiovascular: RRR, no murmur, no edema Gastrointestinal (Abdomen): Inspection/Auscultation: + abdomen distended; + abnormal bowel sounds (hypoactive) Percussion/Palpation: + abdomen tender ( diffuse, no peritoneal signs) and abdomen soft; no guarding Musculoskeletal: no cyanosis or clubbing, extremities motor strength 5/5 Skin: no rashes, warm and dry Neurologic: patellar DTR's 2+ bilat, sensation intact and PERRL, EOMI, accommodation nl, no face palsy, no dysarthria Psychiatric: A+Ox3, euthymic affect Lymphatic: no cervical or axillary lymphadenopathy Results & Data Laboratory Results Laboratory Results - last 24 hr 11/02/18 11/02/18 11/03/18 18:09 18:09 05:54 WBC 12.68 H 11.08 H RBC 4.78 4.50 L Hgb 15.6 14.7 Hct 43.9 41.7 L MCV 91.8 92.7 MCH 32.6 32.7 MCHC 35.5 35.3 RDW Std Deviation 41.6 42.2 RDW Coeff of Bk 12.3 12.5 Plt Count 197 192 MPV 10.0 10.0 Immature Gran % (Auto) 0.2 0.2 Neut % (Auto) 84.1 75.6 Lymph % (Auto) 9.9 12.7 [place] % (Auto) 5.2 11.3 Eos % (Auto) 0.5 0.1 Baso % (Auto) 0.1 0.1 Immature Gran # (Auto) 0.03 H 0.02 Neut # (Auto) 10.66 H 8.38 H Lymph # (Auto) 1.26 1.41 [place] # (Auto) 0.66 H 1.25 H Eos # (Auto) 0.06 0.01 Baso # (Auto) 0.01 0.01 PT INR Sodium 137 Potassium 4.3 Chloride 102 Carbon Dioxide 29 Anion Gap 6.0 BUN 18 Creatinine 1.39 Est Cr Clr Drug Dosing 55.0 Est GFR ( Amer) 58.3 Est GFR (Non-Af Amer) 50.3 BUN/Creatinine Ratio 12.9 Glucose 169 H Calcium 9.0 Total Bilirubin 1.0 AST 20 ALT 50 Alkaline Phosphatase 81 Total Protein 7.4 Albumin 3.9 Globulin 3.5 Albumin/Globulin Ratio 1.1 Lipase 115 Urine Color Urine Appearance Urine pH Ur Specific [place] Urine Protein Urine Glucose (UA) Urine Ketones Urine Blood Urine Nitrite Urine Bilirubin Urine Urobilinogen Ur Leukocyte Esterase 11/03/18 11/03/18 11/03/18 05:54 07:41 Unknown WBC RBC Hgb Hct MCV MCH MCHC RDW Std Deviation RDW Coeff of Bk Plt Count MPV Immature Gran % (Auto) Neut % (Auto) Lymph % (Auto) [place] % (Auto) Eos % (Auto) Baso % (Auto) Immature Gran # (Auto) Neut # (Auto) Lymph # (Auto) [place] # (Auto) Eos # (Auto) Baso # (Auto) PT 10.6 INR 1.1 Sodium 140 Potassium 4.0 Chloride 104 Carbon Dioxide 30 Anion Gap 6.0 BUN 17 Creatinine 1.27 Est Cr Clr Drug Dosing 60.2 Est GFR ( Amer) 65.0 Est GFR (Non-Af Amer) 56.1 BUN/Creatinine Ratio 13.5 Glucose 125 H Calcium 8.5 Total Bilirubin AST ALT Alkaline Phosphatase Total Protein Albumin Globulin Albumin/Globulin Ratio Lipase Urine Color Yellow Urine Appearance Clear Urine pH 6.0 Ur Specific [place] 1.027 Urine Protein Negative Urine Glucose (UA) Trace H Urine Ketones Negative Urine Blood Negative Urine Nitrite Negative Urine Bilirubin Negative Urine Urobilinogen Negative Ur Leukocyte Esterase Negative Medications Administered Current Inpatient Medications Enoxaparin Sodium (Lovenox) 40 mg SQ Q24H LIBBY Stop: 12/03/18 08:59 Last Admin: 11/03/18 08:33 Dose: 40 mg Hydromorphone HCl (Dilaudid) 0.5 mg IV Q2H PRN PRN Reason: Pain Stop: 11/16/18 21:33 Last Admin: 11/03/18 08:23 Dose: 0.5 mg Sodium Chloride (Nss 1000ml) 1,000 mls @ 100 mls/hr IV .Q10H LIBBY Stop: 12/02/18 22:33 Last Admin: 11/03/18 08:20 Dose: 100 mls/hr Pantoprazole Sodium 40 mg/ (Syringe) 10 mls @ 5 mls/min IV DAILY@1100 LIBBY Stop: 12/03/18 10:59 Piperacillin Sod/Tazobactam (Sod 3.375 gm/ Dextrose) 115 mls @ 28.75 mls/hr IV Q8H LIBBY; Protocol Stop: 11/05/18 03:59 Last Infusion: 11/03/18 08:23 Dose: Infused Prochlorperazine 10 mg/ (Syringe) 10 mls @ 5 mls/min IV Q6H PRN PRN Reason: Nausea And Vomiting Stop: 12/02/18 22:40 Miscellaneous Information (Consult) 1 ea N/A UD PRN PRN Reason: Consult Stop: 12/02/18 21:59 Ondansetron HCl (Zofran) 4 mg IV Q4H PRN PRN Reason: Nausea Stop: 12/02/18 21:33 Last Admin: 11/03/18 01:22 Dose: 4 mg
--- NOTE | 2018-11-03 09:41 | Surgery Consultation ---
Date of Consultation November 03, 2018 Assessment & Plan (1) Small bowel obstruction: -NGT with improvement of symptoms -IVF -recheck KUB in AM -hopefully will resolve with conservative treatment Present on Admission?: Yes History of Present Illness Attending Physician: Teo Mayo, DO History of Present Illness This is a 73YO male who was doing well until yesday began having crampy periumbilical abdominal pain that built in intensity throughout the day. He says he has a history of somewhat similar on and off weekly episodes of abdominal pain that are more mild than today and usually resolves within an hour. He has had nausea and four episodes of vomiting earlier. He was still having loose stools. He has not had any flatus since late yesterday afternoon. CT scan shows SBO. He feels better with ngt in place. Allergies Allergy/AdvReac Type Severity Reaction Status Date / Time No Known Allergies Allergy Verified 11/02/18 18:17 Home Medications Home Medications Medication Instructions Recorded Confirmed Type aspirin 81 mg PO DAILY 11/02/18 11/02/18 History atorvastatin 80 mg PO DAILY 11/02/18 11/02/18 History buspirone 10 mg PO BID 11/02/18 11/02/18 History losartan 100 mg PO DAILY 11/02/18 11/02/18 History ranitidine HCl 300 mg PO QAM 11/02/18 11/02/18 History Patient History Medical History Ruptured spleen Coronary artery disease (Chronic) Anxiety GERD (gastroesophageal reflux disease) Hyperlipidemia Hypertension Surgical History S/P CABG (coronary artery bypass graft) (Resolved) History of right inguinal hernia repair History of rotator cuff surgery S/P splenectomy Social History marital status: Current Living Situation: Spouse current occupational status: retired Feels Safe at Home: Yes Safety Concerns: Feels Safe At This Time Smoking Status: Former smoker Do You Dip or Chew Tobacco: No Second Hand Exposure: No Tobacco Cessation Education Requested by Patient: No Hx Alcohol Use: No Hx Substance Use: No Beliefs That Will Affect Care: None Preferred Language: Greenlandic Communication Ability: Effective Technical Training 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 Required: No Review of Systems Constitutional: + anorexia; no fever and no chills Ear, Nose, Mouth, Throat: no problem reported Respiratory: no cough, no chest congestion and no dyspnea Cardiovascular: no chest pain, no radiating jaw, neck or arm pain and no dyspnea Gastrointestinal: + abdominal pain (improved with NGT), + nausea, + vomiting and + diarrhea/loose stools; no hematemesis and no constipation Genitourinary (Male): no problem reported Musculoskeletal: no back pain, no neck pain and no joint pain Integumentary: no problem reported Neurologic: no problem reported Psychiatric: no problem reported Endocrine: no problem reported Hematologic / Lymphatic: no problem reported Allergy / Immunological: no problem reported Physical Exam 2 Vital Signs (Past 24 Hours): Last Vital Signs Temp 36.6 C 11/03/18 07:14 Pulse 78 11/03/18 07:14 Resp 16 11/03/18 07:14 BP 138/78 11/03/18 07:14 Pulse Ox 94 11/03/18 07:14 Constitutional: WD/WN, vitals as above ENMT: external ear and nose normal, oropharynx normal Neck: trachea midline Respiratory: normal respiratory effort, lungs clear to auscultation Cardiovascular: RRR, no murmur, no edema Gastrointestinal (Abdomen): Inspection/Auscultation: + abdomen distended and normal bowel sounds Percussion/Palpation: + abdomen tender (mild) and abdomen soft; no guarding Musculoskeletal: Head/Neck/Chest: normocephalic and head atraumatic Skin: no rashes, warm and dry Psychiatric: A+Ox3, euthymic affect Results & Data Diagnostic Findings ABDOMEN AND PELVIS CT WITHOUT CONTRAST CT DOSE: 666.87 mGy.cm HISTORY: mid abd pain TECHNIQUE: Multiaxial CT images of the abdomen and pelvis were performed without contrast. A dose lowering technique was utilized adhering to the principles of ALARA. COMPARISON STUDY: None. FINDINGS: Mild dependent changes seen at the lung bases. No pneumoperitoneum. No pneumatosis. Poststernotomy changes. The heart is mildly enlarged. Tiny fat- containing umbilical hernia. Small fat-containing right inguinal hernia. The unenhanced liver, gallbladder, spleen, adrenal glands, and pancreas are unremarkable. No retroperitoneal lymphadenopathy. Calcified plaque within the normal caliber abdominal aorta. No renal stones or hydronephrosis. Normal bladder. Colonic diverticulosis. No evidence for diverticulitis. Multiple dilated and fluid-filled loops of proximal to mid small bowel with a focal transition point within the right midabdomen best seen on image 303. The bowel loops are dilated up to 4.6 cm. Therefore, this is consistent with a small bowel obstruction at the level of the distal jejunum. The appendix not identified and may be surgically absent. IMPRESSION: 1. Small bowel obstruction with the transition point located at the distal jejunum within the right mid abdomen as described above. This favors an adhesion. 2. Colonic diverticulosis. No evidence for diverticulitis. 3. No renal stones or hydronephrosis.
[2018-11-03] MEDS: PANTOprazole 40 MG in SYRINGE 0 ML IV SCH (11:06)
[2018-11-04] MEDS: HYDROmorphone INJ 0.5 MG/0.5 ML SYR IV PRN ×4 (03:10→21:12)
[2018-11-04] MEDS: PIPERACILLIN/TAZOBACTAM 3.375 GM in DEXTROSE 5% 100 ML IV SCH ×3 (03:44→21:12)
[2018-11-04] MEDS: SODIUM CHLORIDE 0.9% 1000ML 1,000 ML IV SCH ×3 (03:46→23:30)
[2018-11-04] MEDS: ENOXAPARIN INJ 40 MG/0.4 ML SYR SQ SCH (07:14)
--- NOTE | 2018-11-04 07:51 | XRay Report ---
XR KUB CLINICAL HISTORY: SBO obstruction COMPARISON STUDY: CT 11/02/2018 FINDINGS: Persistent distention of small bowel loops in the right central abdomen. Appearance continu es to be consistent with that of partial small bowel obstructive change. There is nasogastric tube with a proximal gastric fundus. IMPRESSION: Unchanging findings of partial distal small bowel obstruction. The above report was generated using voice recognition software. It may contain grammatical, syntax or spelling errors. Electronically signed by: Cristobal Atwood M.D. 11/04/2018 7:50 AM
[2018-11-04 07:54] LABS: Basophils # (auto) 0.01 K/uL (0-0.2); Basophils % (auto) 0.1 %; Eosinophils # (auto) 0.08 K/uL (0-0.5); Eosinophils % (auto) 0.9 %; Hematocrit (blood only) 42.4 % (42-52); Hemoglobin 13.9 g/dL (14.0-18.0); Immature Granulocytes # (auto) 0.01 K/uL (0.00-0.02); Immature Granulocytes % (auto) 0.1 %; Lymphocytes # (auto) 1.47 K/uL (1.2-3.4); Lymphocytes % (auto) 16.5 %; Mean Corpuscular Hgb Conc 32.8 g/dL (32-36); Mean Corpuscular Volume 94.4 fL (80-100); Mean Platelet Volume 9.6 fL (7.4-10.4); Monocytes # (auto) 1.47 K/uL (0.11-0.59); Monocytes % (auto) 16.5 %; Neutrophils # (auto) 5.85 K/uL (1.4-6.5); Neutrophils % (auto) 65.9 %; Platelet Count 180 K/uL (130-400); RDW Coefficient of Variation 12.8 % (11.5-14.5); RDW Standard Deviation 44.3 fL (36.4-46.3); Red Blood Count 4.49 M/uL (4.7-6.1); White Blood Count 8.89 K/uL (4.8-10.8)
--- NOTE | 2018-11-04 07:58 | Hospitalist Progress Note ---
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 Apparently only prior workup was to modify his diet. should be referred to GI as outpatient by his PCP (3) Hypertension: holding Losartan given NPO status (4) Anxiety: On home buspirone 10 mg twice daily. Will hold for now due to NPO. mood stable (5) Hyperlipidemia: On home atorvastatin 80 mg daily on hold due to NPO. (6) Coronary artery disease: holding asprin and blood pressure control (7) GERD (gastroesophageal reflux disease): Protonix 40 mg IV daily. (8) DVT prophylaxis: Lovenox c Subjective Patient was seen with his family, he is tolerating ngt without issues still no flatus or stool Review of Systems ROS: well nourished well developed. No double vision blurry vision No problems with speech or swallowing No palpitations, chest pain or pressure No Wheezing or breathing issues mild abdominal pain no nausea or vomiting no diarrhea No burning urine urine frequency or changes in color No focal joint pain or muscle pain No skin rashes or oral lesions No unusual bruising or bleeding No focused back pain or numbness or loss of strength No changes in memory or confusion Physical Exam 2 Vital Signs (Past 24 Hours): Last Vital Signs Temp 36.4 C L 11/04/18 07:15 Pulse 53 L 11/04/18 07:15 Resp 16 11/04/18 07:15 BP 150/79 H 11/04/18 07:15 Pulse Ox 93 11/04/18 07:15 The patient appeared well nourished and normally developed. Vital signs as documented. Head exam is unremarkable. No scleral icterus or corneal arcus noted Neck is without jugular venous distension, thyromegaly, or lymphademopathy Lungs are clear to auscultation and percussion. Cardiac exam reveals Rhythm is regular. First and second heart sounds normal. No murmurs, rubs or gallops. Abdominal exam reveals abscent bowel sounds, soft mildly tender no masses, no organomegaly Extremities are nonedematous and both pedal pulses are normal. Neurologic exam is A&Ox3, no focal deficits, strength is equal bilateral Skin is warm Dry without bruises or lesions
[2018-11-04 08:21] LABS: BUN Creatinine Ratio 12.4 (10-20); Calcium 8.2 mg/dl (8.5-10.1); Creatinine Clr Calc Pharmacy 58.3 ml/min; Est GFR (African American) 62.6; Potassium 3.9 mmol/L (3.5-5.1)
[2018-11-04] MEDS: PANTOprazole 40 MG in SYRINGE 0 ML IV SCH (10:28)
--- NOTE | 2018-11-04 12:18 | Surgery Progress Note ---
Date of Service November 04, 2018 Assessment & Plan (1) Small bowel obstruction: Patient still with small bowel obstruction. There is no evidence of peritonitis. We will continue conservative measures with NG decompression and n.p.o. If begins to pass flatus or moved bowels can then discontinue his NG tube. Subjective Pain has improved Has not passed flatus or bowel movement No nausea or vomiting Had 525 cc from the NG tube last shift Physical Exam 2 Vital Signs (Past 24 Hours): Last Vital Signs Temp 36.4 C L 11/04/18 07:15 Pulse 53 L 11/04/18 07:15 Resp 16 11/04/18 07:15 BP 150/79 H 11/04/18 07:15 Pulse Ox 93 11/04/18 07:15 Gastrointestinal (Abdomen): Inspection/Auscultation: normal bowel sounds; abdomen not distended Percussion/Palpation: + abdomen tender (Mild diffuse) and abdomen soft Results & Data Laboratory Results 11/04/18 11/04/18 Range/Units 07:37 07:37 WBC 8.89 (4.8-10.8) K/uL RBC 4.49 L (4.7-6.1) M/uL Hgb 13.9 L (14.0-18.0) g/dL Hct 42.4 (42-52) % MCV 94.4 (80-100) fL MCH 31.0 (25-34) pg MCHC 32.8 (32-36) g/dL RDW Std Deviation 44.3 (36.4-46.3) fL RDW Coeff of Bk 12.8 (11.5-14.5) % Plt Count 180 (130-400) K/uL MPV 9.6 (7.4-10.4) fL Immature Gran % (Auto) 0.1 % Neut % (Auto) 65.9 % Lymph % (Auto) 16.5 % Power % (Auto) 16.5 % Eos % (Auto) 0.9 % Baso % (Auto) 0.1 % Immature Gran # (Auto) 0.01 (0.00-0.02) K/uL Neut # (Auto) 5.85 (1.4-6.5) K/uL Lymph # (Auto) 1.47 (1.2-3.4) K/uL Power # (Auto) 1.47 H (0.11-0.59) K/uL Eos # (Auto) 0.08 (0-0.5) K/uL Baso # (Auto) 0.01 (0-0.2) K/uL Sodium 140 (136-145) mmol/L Potassium 3.9 (3.5-5.1) mmol/L Chloride 105 (98-107) mmol/L Carbon Dioxide 29 (21-32) mmol/L Anion Gap 6.0 (3-11) BUN 16 (7-18) mg/dl Creatinine 1.31 (0.6-1.4) mg/dl Est Cr Clr Drug Dosing 58.3 ml/min Est GFR ( Amer) 62.6 Est GFR (Non-Af Amer) 54.0 BUN/Creatinine Ratio 12.4 (10-20) Glucose 103 H (70-99) mg/dl Calcium 8.2 L (8.5-10.1) mg/dl
[2018-11-04] MEDS: ONDANSETRON INJ 2 MG/ML 2 ML VIAL IV PRN (15:42)
[2018-11-05] MEDS: HYDROmorphone INJ 0.5 MG/0.5 ML SYR IV PRN ×4 (02:55→23:43)
[2018-11-05] MEDS: PIPERACILLIN/TAZOBACTAM 3.375 GM in DEXTROSE 5% 100 ML IV SCH ×3 (04:03→21:05)
[2018-11-05 06:22] LABS: Red Blood Count 4.19 M/uL (4.7-6.1); White Blood Count 6.86 K/uL (4.8-10.8)
[2018-11-05 06:23] LABS: Basophils # (auto) 0.02 K/uL (0-0.2); Basophils % (auto) 0.3 %; Eosinophils # (auto) 0.18 K/uL (0-0.5); Eosinophils % (auto) 2.6 %; Hematocrit (blood only) 39.1 % (42-52); Hemoglobin 13.2 g/dL (14.0-18.0); Lymphocytes # (auto) 1.72 K/uL (1.2-3.4); Lymphocytes % (auto) 25.1 %; Mean Corpuscular Hgb Conc 33.8 g/dL (32-36); Mean Corpuscular Volume 93.3 fL (80-100); Mean Platelet Volume 9.4 fL (7.4-10.4); Monocytes # (auto) 1.01 K/uL (0.11-0.59); Monocytes % (auto) 14.7 %; Neutrophils # (auto) 3.93 K/uL (1.4-6.5); Neutrophils % (auto) 57.3 %; Platelet Count 167 K/uL (130-400); RDW Coefficient of Variation 12.4 % (11.5-14.5); RDW Standard Deviation 41.8 fL (36.4-46.3)
[2018-11-05 06:52] LABS: BUN Creatinine Ratio 13.5 (10-20); Calcium 7.9 mg/dl (8.5-10.1); Creatinine Clr Calc Pharmacy 63.1 ml/min; Est GFR (African American) 68.9; Est GFR (Non-African American) 59.5; Potassium 3.9 mmol/L (3.5-5.1)
[2018-11-05] MEDS: SODIUM CHLORIDE 0.9% 1000ML 1,000 ML IV SCH ×2 (08:39→18:47)
[2018-11-05] MEDS: ENOXAPARIN INJ 40 MG/0.4 ML SYR SQ SCH (08:40)
[2018-11-05] MEDS: PANTOprazole 40 MG in SYRINGE 0 ML IV SCH (10:44)
--- NOTE | 2018-11-05 12:37 | Surgery Progress Note ---
Date of Service November 05, 2018 F/U SBO pt is stable, not pass gas yet, no abdominal pain, NG 600ml/24h Assessment & Plan (1) Small bowel obstruction: Patient still with small bowel obstruction. There is no evidence of peritonitis. We will continue conservative measures with NG decompression and n.p.o. If begins to pass flatus or moved bowels can then discontinue his NG tube. 11/05/2018 12:36pm stable, not pass gas yet continue treatment will F/U Subjective Pain has improved Has not passed flatus or bowel movement No nausea or vomiting Had 525 cc from the NG tube last shift Constitutional: + anorexia; no fever and no chills Gastrointestinal: + abdominal pain (improved with NGT), + nausea, + vomiting and + diarrhea/loose stools; no hematemesis and no constipation Physical Exam 2 Vital Signs (Past 24 Hours): Last Vital Signs Temp 36.4 C L 11/05/18 07:52 Pulse 61 11/05/18 07:52 Resp 17 11/05/18 07:52 BP 145/79 H 11/05/18 07:52 Pulse Ox 94 11/05/18 07:52 Constitutional: WD/WN, vitals as above Neck: trachea midline, no thyromegaly Respiratory: normal respiratory effort, lungs clear to auscultation Cardiovascular: RRR, no murmur, no edema Gastrointestinal (Abdomen): Percussion/Palpation: abdomen soft no distend, no tenderness, BS + Neurologic: awake Psychiatric: Orientation: alert and oriented x 3 Results & Data Laboratory Results Abnormal lab results 11/05/18 11/05/18 Range/Units 06:08 06:08 RBC 4.19 L (4.7-6.1) M/uL Hgb 13.2 L (14.0-18.0) g/dL Hct 39.1 L (42-52) % [place] # (Auto) 1.01 H (0.11-0.59) K/uL Calcium 7.9 L (8.5-10.1) mg/dl
[2018-11-05] MEDS ORDERED: HydrALAZINE HCL 20 MG/ML VIAL IV PRN (16:07)
--- NOTE | 2018-11-06 00:11 | Hospitalist Progress Note ---
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 No flatus No po intake since the AM of 11/02/18 -continue NGT to low intermittent suction until passing flatus -Appreciate General surgery consultation -continue NPO, IV fluids, IV Zosyn, WBC down to 6k IV pain control -if not resolving over the next 2-3 days, would need to consider TPN/PPN vs surgery (2) Frequent loose stools: Frequent loose stools: Patient says he has had at least two loose non- bloody stools daily for years now. Apparently only prior workup was to modify his diet. Consider referral after discharge to GI as outpatient by his PCP (3) Hypertension: BPs mildly elevated here due to holding Losartan given NPO status -follow, asymptomatic -if become severely elevated > 180 systolic, can treat with IV hydralazine (4) Anxiety: On home buspirone 10 mg twice daily. Will hold for now due to NPO. mood stable (5) Hyperlipidemia: -holding home atorvastatin 80 mg daily while NPO. (6) Coronary artery disease: With h/o 3v CABG in 2004. No angina ever, can easily achieve 4 METS without symptoms. Had stress test within the last 1-2 years with his primary [employer], Dr. Menchaca, that was reportedly normal as per pt -continue holding aspirin, statin while NPO -patient does not know why he is not on a beta gurmeet, but presume due to bradycardia (7) GERD (gastroesophageal reflux disease): On Zantac as outpt -continues on Protonix 40 mg IV daily while NPO here (8) DVT prophylaxis: Lovenox SQ Dispo-remain on Med/Surgery floor Subjective Pt reports no flatus passed at all. He was disconnected from the NGT for about 5 -7 min just before I saw him while he went to urinate in the bathroom and was already reporting return of his abd pain and nausea. Remains afebrile No chest pain or SOB. No headache today but did have one yesterday Review of Systems All systems reviewed & are unremarkable except as noted in HPI & below Physical Exam 2 Vital Signs (Past 24 Hours): Last Vital Signs Temp 36.8 C 11/05/18 23:32 Pulse 54 L 11/05/18 23:32 Resp 16 11/05/18 23:32 BP 163/85 H 11/05/18 23:32 Pulse Ox 92 11/05/18 23:32 Constitutional: WD/WN, vitals as above Eyes: PERRL, conjunctivae normal, anicteric sclerae ENMT: Ears: no hearing impairment Nose: + external nose abnormality (NGT in place) Neck: trachea midline, no thyromegaly Respiratory: normal respiratory effort, lungs clear to auscultation Cardiovascular: RRR, no murmur, no edema Gastrointestinal (Abdomen): Inspection/Auscultation: abdomen normal to inspection and normal bowel sounds; abdomen not distended Percussion/ Palpation: + abdomen tender (diffusely, but more in periumbilical region, no guarding or rebound) and abdomen soft Musculoskeletal: Extremities: extremities normal to inspection; no cyanosis and no clubbing Skin: no rashes, warm and dry Neurologic: moves all extremities and awake; no focal motor deficits Psychiatric: A+Ox3, euthymic affect Results & Data Laboratory Results 11/05/18 11/05/18 Range/Units 06:08 06:08 WBC 6.86 (4.8-10.8) K/uL RBC 4.19 L (4.7-6.1) M/uL Hgb 13.2 L (14.0-18.0) g/dL Hct 39.1 L (42-52) % MCV 93.3 (80-100) fL MCH 31.5 (25-34) pg MCHC 33.8 (32-36) g/dL RDW Std Deviation 41.8 (36.4-46.3) fL RDW Coeff of Bk 12.4 (11.5-14.5) % Plt Count 167 (130-400) K/uL MPV 9.4 (7.4-10.4) fL Immature Gran % (Auto) 0.0 % Neut % (Auto) 57.3 % Lymph % (Auto) 25.1 % [place] % (Auto) 14.7 % Eos % (Auto) 2.6 % Baso % (Auto) 0.3 % Immature Gran # (Auto) 0.00 (0.00-0.02) K/uL Neut # (Auto) 3.93 (1.4-6.5) K/uL Lymph # (Auto) 1.72 (1.2-3.4) K/uL [place] # (Auto) 1.01 H (0.11-0.59) K/uL Eos # (Auto) 0.18 (0-0.5) K/uL Baso # (Auto) 0.02 (0-0.2) K/uL Sodium 140 (136-145) mmol/L Potassium 3.9 (3.5-5.1) mmol/L Chloride 106 (98-107) mmol/L Carbon Dioxide 28 (21-32) mmol/L Anion Gap 6.0 (3-11) BUN 16 (7-18) mg/dl Creatinine 1.21 (0.6-1.4) mg/dl Est Cr Clr Drug Dosing 63.1 ml/min Est GFR ( Amer) 68.9 Est GFR (Non-Af Amer) 59.5 BUN/Creatinine Ratio 13.5 (10-20) Glucose 90 (70-99) mg/dl Calcium 7.9 L (8.5-10.1) mg/dl _ (1) Hyperlipidemia Hyperlipidemia type: unspecified Qualified Code(s): E78.5 - Hyperlipidemia, unspecified (2) Coronary artery disease Coronary Disease-Associated Artery/Lesion type: [place] artery [place] vs. transplanted heart: [place] heart Associated angina: without angina Qualified Code(s): I25.10 - Atherosclerotic heart disease of [place] coronary artery without angina pectoris (3) GERD (gastroesophageal reflux disease) Esophagitis presence: esophagitis presence not specified Qualified Code(s): K21.9 - Gastro-esophageal reflux disease without esophagitis
[2018-11-06] MEDS: SODIUM CHLORIDE 0.9% 1000ML 1,000 ML IV SCH ×3 (03:55→23:33)
[2018-11-06] MEDS: PIPERACILLIN/TAZOBACTAM 3.375 GM in DEXTROSE 5% 100 ML IV SCH ×3 (03:56→19:24)
[2018-11-06 06:18] LABS: Basophils # (auto) 0.03 K/uL (0-0.2); Basophils % (auto) 0.5 %; Eosinophils # (auto) 0.21 K/uL (0-0.5); Eosinophils % (auto) 3.7 %; Hematocrit (blood only) 37.8 % (42-52); Hemoglobin 13.2 g/dL (14.0-18.0); Immature Granulocytes # (auto) 0.01 K/uL (0.00-0.02); Immature Granulocytes % (auto) 0.2 %; Lymphocytes # (auto) 1.17 K/uL (1.2-3.4); Lymphocytes % (auto) 20.5 %; Mean Corpuscular Hgb Conc 34.9 g/dL (32-36); Mean Corpuscular Volume 91.5 fL (80-100); Mean Platelet Volume 9.8 fL (7.4-10.4); Monocytes # (auto) 1.06 K/uL (0.11-0.59); Monocytes % (auto) 18.6 %; Neutrophils # (auto) 3.22 K/uL (1.4-6.5); Neutrophils % (auto) 56.5 %; Platelet Count 176 K/uL (130-400); RDW Standard Deviation 40.5 fL (36.4-46.3); Red Blood Count 4.13 M/uL (4.7-6.1)
[2018-11-06 06:42] LABS: Albumin Level 2.8 gm/dl (3.4-5.0); Calcium 7.6 mg/dl (8.5-10.1); Creatinine Clr Calc Pharmacy 71.4 ml/min; Potassium 3.6 mmol/L (3.5-5.1)
[2018-11-06 06:44] LABS: Albumin Globulin Ratio 0.9 (0.9-2); Bilirubin,Total 1.8 mg/dl (0.2-1); Globulin 3.1 gm/dl (2.5-4.0); Total Protein 5.9 gm/dl (6.4-8.2)
[2018-11-06] MEDS: ONDANSETRON INJ 2 MG/ML 2 ML VIAL IV PRN (07:54)
[2018-11-06] MEDS: ENOXAPARIN INJ 40 MG/0.4 ML SYR SQ SCH (09:08)
[2018-11-06] MEDS: HYDROmorphone INJ 0.5 MG/0.5 ML SYR IV PRN ×3 (10:37→19:33)
[2018-11-06] MEDS: PANTOprazole 40 MG in SYRINGE 0 ML IV SCH (10:38)
--- NOTE | 2018-11-06 10:49 | Surgery Progress Note ---
Date of Service November 06, 2018 Assessment & Plan (1) Small bowel obstruction: No leukocytosis, afebrile no return of bowel function, no flatus abdomen is distended but soft + nausea NGT with dark brown output, 630 cc in last 24 hours Plan: Since there has been no return of bowel function in last 4 days discussed with patient the option of surgical exploration. Will get a KUB today to eval extent of small bowel dilatation Continue NGT to LIS Continue IV fluids, Pain management prn, IV Zofran prn Continue OOB to chair and ambulate in hallway if able Continue medical management Dr. Hidalgo evaluated patient and discussed the need for surgical exploration as there has been no return of bowel function. Discussed procedure and risks including bleeding, infection, injury to surrounding organs/tissues, injury to bowel, cardiopulomonary complications including stroke, FL, blood clots and even . Patient understood and informed consent obtained. Will consult cardiology for preop eval given CAD history and triple bypass Dr. Hidalgo has seen and examined patient, agrees with above. Subjective abdominal pain, better than previously but still present +nausea this morning Had pain when NGT was clamped yesterday during ambulation No flatus or bowel movement Physical Exam 2 Vital Signs (Past 24 Hours): Last Vital Signs Temp 36.5 C 11/06/18 07:38 Pulse 85 11/06/18 07:38 Resp 16 11/06/18 07:38 BP 138/86 11/06/18 07:38 Pulse Ox 97 11/06/18 07:38 Constitutional: WD/WN, vitals as above no acute distress Respiratory: normal respiratory effort; no respiratory distress Gastrointestinal (Abdomen): Inspection/Auscultation: abdomen normal to inspection, + abdomen distended (moderate), + abdominal surgical scar (left abdominal transverse and longitudinal scar, Right abdominal longitudincal scar) and + hypoactive bowel sounds Percussion/Palpation: + abdomen tender and abdomen soft; no guarding and abdomen not rigid NGT with dark brown output Skin: no rashes, warm and dry Psychiatric: A+Ox3, euthymic affect Results & Data Laboratory Results 11/06/18 11/06/18 Range/Units 05:22 05:22 WBC 5.70 (4.8-10.8) K/uL RBC 4.13 L (4.7-6.1) M/uL Hgb 13.2 L (14.0-18.0) g/dL Hct 37.8 L (42-52) % MCV 91.5 (80-100) fL MCH 32.0 (25-34) pg MCHC 34.9 (32-36) g/dL RDW Std Deviation 40.5 (36.4-46.3) fL RDW Coeff of Bk 12.0 (11.5-14.5) % Plt Count 176 (130-400) K/uL MPV 9.8 (7.4-10.4) fL Immature Gran % (Auto) 0.2 % Neut % (Auto) 56.5 % Lymph % (Auto) 20.5 % [place] % (Auto) 18.6 % Eos % (Auto) 3.7 % Baso % (Auto) 0.5 % Immature Gran # (Auto) 0.01 (0.00-0.02) K/uL Neut # (Auto) 3.22 (1.4-6.5) K/uL Lymph # (Auto) 1.17 L (1.2-3.4) K/uL [place] # (Auto) 1.06 H (0.11-0.59) K/uL Eos # (Auto) 0.21 (0-0.5) K/uL Baso # (Auto) 0.03 (0-0.2) K/uL Sodium 137 (136-145) mmol/L Potassium 3.6 (3.5-5.1) mmol/L Chloride 104 (98-107) mmol/L Carbon Dioxide 27 (21-32) mmol/L Anion Gap 6.0 (3-11) BUN 16 (7-18) mg/dl Creatinine 1.07 (0.6-1.4) mg/dl Est Cr Clr Drug Dosing 71.4 ml/min Est GFR ( Amer) 80.0 Est GFR (Non-Af Amer) 69.0 BUN/Creatinine Ratio 15.0 (10-20) Glucose 83 (70-99) mg/dl Calcium 7.6 L (8.5-10.1) mg/dl Total Bilirubin 1.8 H (0.2-1) mg/dl AST 16 (15-37) U/L ALT 27 (12-78) U/L Alkaline Phosphatase 53 (45-117) U/L Total Protein 5.9 L (6.4-8.2) gm/dl Albumin 2.8 L (3.4-5.0) gm/dl Globulin 3.1 (2.5-4.0) gm/dl Albumin/Globulin Ratio 0.9 (0.9-2)
--- NOTE | 2018-11-06 11:47 | XRay Report ---
XR KUB CLINICAL HISTORY: eval SBO bowel obstruction COMPARISON STUDY: 11/04/2018 FINDINGS: Nasogastric tube is now within the gastric fundus. Bowel pattern remains similar. This cons istent with a partial distal small bowel obstruction. There is no colonic distention. IMPRESSION: Unchanging findings of distal small bowel partial obstructive change. Nasogastric tube w ithin the gastric fundus. The above report was generated using voice recognition software. It may contain grammatical, syntax or spelling errors. Electronically signed by: Cristobal Atwood M.D. 11/06/2018 11:45 AM
--- NOTE | 2018-11-06 14:26 | Anesthesiology Consultation ---
Date of Service November 06, 2018 Assessment & Plan (1) Encounter for pre-operative examination: Chart Review Chart Review: Patient seen in Pre Admission Testing Acceptable risk for surgery pending echo results. Consults Requested cardiac Surgical team has consulted cardiology due to history of prior CABG. Pt states that he had an LA in April of 2005 that required placement of balloon pump until after completion of his CABG. Therefore, if at all possible, we would like a recent echo (within the last few years) prior to proceeding with anesthesia to determine whether or not the patent has any ischemic cardiomyopathy. Of note, patient does have excellent functional capacity. Proposed Anesthesia Anesthesia Type: General Risk / Benefits Reviewed With: PT / POA / Parent / Guardian, Accepts Plan and Informed Consent Obtained History Surgery Operation Date: 11/07/18 08:15 Proposed Procedures p Exploratory Laparotomy Possible Bowel Resection, Possible Ostomy - Eddie Hidalgo MD Height/Weight Height: 5 ft 9 in Weight: 96.2 kg Allergies Allergy/AdvReac Type Severity Reaction Status Date / Time No Known Allergies Allergy Verified 11/02/18 18:17 Medications Home Medications Medication Instructions Recorded Confirmed Last Taken aspirin 81 mg PO DAILY 11/02/18 11/02/18 Unknown atorvastatin 80 mg PO DAILY 11/02/18 11/02/18 Unknown buspirone 10 mg PO BID 11/02/18 11/02/18 Unknown losartan 100 mg PO DAILY 11/02/18 11/02/18 Unknown ranitidine HCl 300 mg PO QAM 11/02/18 11/02/18 Unknown Active Medications Generic Name Dose Route Start Last Admin Trade Name Freq PRN Reason Stop Dose Admin Enoxaparin Sodium 40 mg 11/03/18 09:00 11/06/18 09:08 Lovenox SQ 12/03/18 08:59 40 mg Q24H LIBBY Administration Hydromorphone HCl 0.5 mg 11/02/18 21:34 11/06/18 10:37 Dilaudid IV 11/16/18 21:33 0.5 mg Q2H PRN Administration Pain Sodium Chloride 1,000 mls @ 100 mls/hr 11/02/18 22:34 11/06/18 14:16 Nss 1000ml IV 12/02/18 22:33 100 mls/hr .Q10H LIBBY Administration Pantoprazole Sodium 40 mg/ 10 mls @ 5 mls/min 11/03/18 11:00 11/06/18 10:38 Syringe IV 12/03/18 10:59 5 mls/min DAILY@1100 LIBBY Administration Piperacillin Sod/Tazobactam 115 mls @ 28.75 mls/hr 11/03/18 04:00 11/06/18 11 :29 Sod 3.375 gm/ Dextrose IV 11/13/18 03:59 28.8 mls/hr Q8H LIBBY Administration Protocol Ondansetron HCl 4 mg 11/02/18 21:34 11/06/18 07:54 Zofran IV 12/02/18 21:33 4 mg Q4H PRN Administration Nausea Past Medical History Medical History Ruptured spleen Coronary artery disease (Chronic) Anxiety GERD (gastroesophageal reflux disease) Hyperlipidemia Hypertension Myocardial infarct April 2005 Obesity (BMI 30.0-34.9) Past Surgical History Surgical History S/P CABG (coronary artery bypass graft) (Resolved) History of right inguinal hernia repair History of rotator cuff surgery S/P splenectomy Past Anesthesia History No Hx of Anesthesia Complications History of PONV No Motion Sickness Screening History of Motion Sickness: No Social History Smoking Status: Former smoker Do You Dip or Chew Tobacco: No Hx Alcohol Use: No Hx Substance Use: No Exercise / Class Metabolic Activity II 4-5 Yardwork/Stairs/Walk up hill Negative for chest pain or shortness of breath. Patient denies active symptoms of GERD. NG tube in place Physical Exam Vital Signs Last Vital Signs Temp 36.4 C L 11/06/18 12:16 Pulse 61 11/06/18 12:16 Resp 16 11/06/18 12:16 BP 155/80 H 11/06/18 12:16 Pulse Ox 91 11/06/18 12:16 Constitutional + obese ENMT Mouth: no TMJ abnormality and oral opening not small Thyromental Distance: > or= 3.5 Finger Breadths Mallampati Class: III Neck normal visual inspection; neck extension not limited Respiratory normal respiratory effort Auscultation: lungs clear to auscultation bilaterally Cardiovascular Rate/Rhythm: regular rate and regular rhythm Heart Sounds: no murmur Psychiatric A+Ox3, euthymic affect Orientation: alert and oriented x 3 Testing Electrocardiogram Date: 11/01/18 Findings: + SB @ (51) Sinus bradycardia with 1st degree A-V block Inferior infarct (cited on or before 23-NOV-2006) Abnormal ECG, When compared with ECG of 24-NOV-2006 07:01, No significant change was found Other Testing KUB - 11/06/18 IMPRESSION: Unchanging findings of distal small bowel partial obstructive change. Nasogastric tube within the gastric fundus. Laboratory Results 11/06/18 05:22 11/06/18 05:22 PT 10.6 Seconds (9.0-12.0) 11/03/18 07:41 INR 1.1 (0.9-1.1) 11/03/18 07:41 Urine Color Yellow 11/03/18 Unknown Urine Appearance Clear (Clear) 11/03/18 Unknown Urine pH 6.0 (4.5-7.5) 11/03/18 Unknown Ur Specific [place] 1.027 (1.000-1.030) 11/03/18 Unknown Urine Protein Negative (Negative) 11/03/18 Unknown Urine Glucose (UA) Trace (Negative) H 11/03/18 Unknown Urine Ketones Negative (Negative) 11/03/18 Unknown Urine Nitrite Negative (Negative) 11/03/18 Unknown Ur Leukocyte Esterase Negative (Negative) 11/03/18 Unknown
--- NOTE | 2018-11-06 17:39 | Cardiology Consultation ---
Date of Consultation November 06, 2018 Assessment & Plan (1) Preoperative cardiovascular examination: Patient has a history of coronary artery disease but appears to be quite functional without active symptoms of angina or coronary insufficiency. His examination is benign with the exception of a systolic ejection murmur. He is not appear to have pulmonary vascular congestion and has no history of congestive heart failure. He is not appear to have any significant arrhythmia by history. He appears to have a good exercise tolerance without exertional symptoms. He also appears to require the surgery which is scheduled for tomorrow. As such, he should proceed to surgery without any additional testing. If he requires an echocardiogram from Anesthesiology standpoint this can be ordered. His records could also be accessed from [facility] to see if 1 has been performed recently. Does not appear to have symptomatic valvular heart disease despite a murmur on examination. As with all patients and a history of cardiovascular disease, efforts should be made to avoid significant anemia, hypotension, hypertension, tachycardia and hypoxia. He is not currently on a beta-gurmeet and 1 should not be initiated in the perioperative period. Present on Admission?: No (2) Coronary artery disease: He appears to have undergone a successful revascularization in 2004. He reports this being in the setting of an acute myocardial infarction. The details are not currently available. He appears to be on a good medical regimen for secondary prevention with the exception of a beta-gurmeet. It is unclear why this is been omitted from his medical regimen. The patient could not provide any information in this regard. Beta-gurmeet should not be started in the perioperative period. Present on Admission?: Yes History of Present Illness Reason for Consultation: Pre-operative Requesting Physician: Josh Attending Physician: Carlos Moreno History of Present Illness The patient is a 73-year-old gentleman with a history of significant coronary disease having previously undergone surgical revascularization in 2004. Patient has history of abdominal surgeries and recently has developed symptoms consistent with a small-bowel obstruction. Despite conservative therapy there has been no resolution of his symptoms and it appears he will require surgical intervention. Patient's cardiac history started in 2004 at which time he had an episode of chest discomfort reportedly in the setting of an acute myocardial infarction. He was transferred to [facility] in [place] where evaluation suggested that he needed surgical revascularization. He underwent 3 vessel bypass grafting at that time. He reports doing well since. He is proud of his medical compliance is not had any recurrent symptoms of chest discomfort. Generally speaking he is an active individual who was accustomed to moderate activity such as at ascending stairs and hiking. He does have somewhat reduced exercise tolerance verses few years ago, but does not report exertional symptoms such as limiting dyspnea or chest discomfort. He has not have dizziness or lightheadedness. He has not suffered syncope. He has not been aware of any palpitations. He has not report orthopnea or paroxysmal nocturnal dyspnea. He has not noticed any swelling of lower extremities. Allergies Allergy/AdvReac Type Severity Reaction Status Date / Time No Known Allergies Allergy Verified 11/02/18 18:17 Home Medications Home Medications Medication Instructions Recorded Confirmed Type aspirin 81 mg PO DAILY 11/02/18 11/02/18 History atorvastatin 80 mg PO DAILY 11/02/18 11/02/18 History buspirone 10 mg PO BID 11/02/18 11/02/18 History losartan 100 mg PO DAILY 11/02/18 11/02/18 History ranitidine HCl 300 mg PO QAM 11/02/18 11/02/18 History Patient History Medical History Ruptured spleen Coronary artery disease (Chronic) Anxiety GERD (gastroesophageal reflux disease) Hyperlipidemia Hypertension Myocardial infarct April 2005 Obesity (BMI 30.0-34.9) Surgical History S/P CABG (coronary artery bypass graft) (Resolved) History of right inguinal hernia repair History of rotator cuff surgery S/P splenectomy Social History marital status: Current Living Situation: Spouse current occupational status: retired Feels Safe at Home: Yes Safety Concerns: Feels Safe At This Time Smoking Status: Former smoker Do You Dip or Chew Tobacco: No Hx Alcohol Use: No Hx Substance Use: No Beliefs That Will Affect Care: None Preferred Language: Chinese Communication Ability: Effective Regional Branch Manager Required: No Review of Systems Complete. Pertinent positives noted in history present illness. Patient has had abdominal distention, nausea and vomiting. He has not had fevers or chills. He did have a cough recently which was difficult to resolved. No coughing currently. Physical Exam 2 Vital Signs (Past 24 Hours): Last Vital Signs Temp 36.8 C 11/06/18 15:26 Pulse 59 L 11/06/18 15:26 Resp 18 11/06/18 15:26 BP 159/78 H 11/06/18 16:37 Pulse Ox 92 11/06/18 15:26 Physical Exam: The patient is alert and oriented. Mood and affect appeared normal. He answered all questions appropriately. HEENT: Pupils are equal and reactive to light and accommodation. Extraocular movements are intact. The sclerae are anicteric. Neuro: Cranial nerves intact Neck: Patient's neck is supple. He has palpable carotid pulses bilaterally without bruits on auscultation. There is no evidence of jugular venous distention. The thyroid is not enlarged. Lungs: Clear to auscultation bilaterally. He has good air movement without use of accessory muscles. No rales wheezes or rhonchi. Cardiac: Heart demonstrates a regular rate and rhythm. Normal S1 and S2. Crescendo systolic murmur heard best at the left upper sternal border. Pulses: The patient has palpable radial pulses bilaterally that are equal in intensity. Good dorsalis pedis pulses bilaterally. Extremities: There was no evidence of hypoperfusion. There is no cyanosis or clubbing. There is no edema. Skin: I did not appreciate any rashes on examination today. Results & Data Laboratory Results Abnormal Lab Results 11/06/18 11/06/18 05:22 05:22 WBC 5.70 RBC 4.13 L Hgb 13.2 L Hct 37.8 L MCV 91.5 MCH 32.0 MCHC 34.9 RDW Std Deviation 40.5 RDW Coeff of Bk 12.0 Plt Count 176 MPV 9.8 Immature Gran % (Auto) 0.2 Neut % (Auto) 56.5 Lymph % (Auto) 20.5 [place] % (Auto) 18.6 Eos % (Auto) 3.7 Baso % (Auto) 0.5 Immature Gran # (Auto) 0.01 Neut # (Auto) 3.22 Lymph # (Auto) 1.17 L [place] # (Auto) 1.06 H Eos # (Auto) 0.21 Baso # (Auto) 0.03 Sodium 137 Potassium 3.6 Chloride 104 Carbon Dioxide 27 Anion Gap 6.0 BUN 16 Creatinine 1.07 Est Cr Clr Drug Dosing 71.4 Est GFR ( Amer) 80.0 Est GFR (Non-Af Amer) 69.0 BUN/Creatinine Ratio 15.0 Glucose 83 Calcium 7.6 L Total Bilirubin 1.8 H AST 16 ALT 27 Alkaline Phosphatase 53 Total Protein 5.9 L Albumin 2.8 L Globulin 3.1 Albumin/Globulin Ratio 0.9 ECG Additional Comments: Normal sinus rhythm with possible old inferior myocardial infarction and nonspecific ST and T-wave changes. _ (1) Coronary artery disease Coronary Disease-Associated Artery/Lesion type: [place] artery [place] vs. transplanted heart: [place] heart Associated angina: without angina Qualified Code(s): I25.10 - Atherosclerotic heart disease of [place] coronary artery without angina pectoris
--- NOTE | 2018-11-06 19:10 | Hospitalist Progress Note ---
Date of Service November 06, 2018 Assessment & Plan (1) Small bowel obstruction: unfortunately the SBO has persisted despite bowel rest and NG tube decompression. he has been posted for the OR tomorrow with surgery for ex lap etc. cont NG tube, fluids, etc. uncertain of the role of IV abx therapy in this situation - defer abx to gen surg. Present on Admission?: Yes (2) Coronary artery disease: no recent ischemic symptoms. seen by cardiology - no preop testing advised. from CV standpoint he is optimized. Present on Admission?: Yes (3) Hypertension: adequate control at this time (4) Anxiety: no issues (5) Hyperlipidemia: holding his statin for now (6) GERD (gastroesophageal reflux disease): IV PPI (7) DVT prophylaxis: lovenox daily Subjective unfortunately still no flatus or bowel movement abd still distended NG tube still draining copious material he remains optimistic that he will open up, however he continues to ambulate denies any chest pain or dyspnea w/ exertion Constitutional: no fever Respiratory: no cough, no dyspnea and no dyspnea on exertion Cardiovascular: no chest pain Gastrointestinal: no abdominal pain Physical Exam 2 Vital Signs (Past 24 Hours): Last Vital Signs Temp 36.8 C 11/06/18 15:26 Pulse 59 L 11/06/18 15:26 Resp 18 11/06/18 15:26 BP 159/78 H 11/06/18 16:37 Pulse Ox 92 11/06/18 15:26 Constitutional: well developed and well nourished; no acute distress ENMT: external ear and nose normal, oropharynx normal NG tube in place Respiratory: normal respiratory effort, lungs clear to auscultation Cardiovascular: Rate/Rhythm: regular rate and regular rhythm Heart Sounds: normal S1 and normal S2; no murmur Vessels: posterior tibial pulses present and dorsalis pedis pulses present; no JVD Gastrointestinal (Abdomen): Inspection/Auscultation: + abdomen distended and normal bowel sounds Percussion/Palpation: abdomen nontender, no guarding and no hepatosplenomegaly Psychiatric: A+Ox3, euthymic affect Results & Data Laboratory Results Laboratory Results - last 24 hr 11/06/18 11/06/18 05:22 05:22 WBC 5.70 RBC 4.13 L Hgb 13.2 L Hct 37.8 L MCV 91.5 MCH 32.0 MCHC 34.9 RDW Std Deviation 40.5 RDW Coeff of Bk 12.0 Plt Count 176 MPV 9.8 Immature Gran % (Auto) 0.2 Neut % (Auto) 56.5 Lymph % (Auto) 20.5 [place] % (Auto) 18.6 Eos % (Auto) 3.7 Baso % (Auto) 0.5 Immature Gran # (Auto) 0.01 Neut # (Auto) 3.22 Lymph # (Auto) 1.17 L [place] # (Auto) 1.06 H Eos # (Auto) 0.21 Baso # (Auto) 0.03 Sodium 137 Potassium 3.6 Chloride 104 Carbon Dioxide 27 Anion Gap 6.0 BUN 16 Creatinine 1.07 Est Cr Clr Drug Dosing 71.4 Est GFR ( Amer) 80.0 Est GFR (Non-Af Amer) 69.0 BUN/Creatinine Ratio 15.0 Glucose 83 Calcium 7.6 L Total Bilirubin 1.8 H AST 16 ALT 27 Alkaline Phosphatase 53 Total Protein 5.9 L Albumin 2.8 L Globulin 3.1 Albumin/Globulin Ratio 0.9 _ (1) Coronary artery disease Coronary Disease-Associated Artery/Lesion type: [place] artery [place] vs. transplanted heart: [place] heart Associated angina: without angina Qualified Code(s): I25.10 - Atherosclerotic heart disease of [place] coronary artery without angina pectoris (2) Hypertension Hypertension type: essential hypertension Qualified Code(s): I10 - Essential (primary) hypertension (3) Hyperlipidemia Hyperlipidemia type: unspecified Qualified Code(s): E78.5 - Hyperlipidemia, unspecified (4) GERD (gastroesophageal reflux disease) Esophagitis presence: esophagitis presence not specified Qualified Code(s): K21.9 - Gastro-esophageal reflux disease without esophagitis
[2018-11-07] MEDS: HYDROmorphone INJ 0.5 MG/0.5 ML SYR IV PRN ×5 (01:14→22:55)
[2018-11-07] MEDS: PIPERACILLIN/TAZOBACTAM 3.375 GM in DEXTROSE 5% 100 ML IV SCH ×3 (04:12→22:44)
[2018-11-07] MEDS ORDERED: LIDOCAINE HCL 1% 20 ML VIAL ONE (07:42)
[2018-11-07] MEDS ORDERED: BACITRACIN OINT 15 GM TUBE ONE (07:42)
[2018-11-07] MEDS ORDERED: BUPIVACAINE 0.5 % 5 MG/1 ML MPF 30ML VIAL ONE (07:42)
[2018-11-07 07:43] LABS: BUN Creatinine Ratio 14.6 (10-20); Creatinine Clr Calc Pharmacy 77.2 ml/min; Est GFR (African American) 87.8; Est GFR (Non-African American) 75.8; Magnesium 2.2 mg/dl (1.8-2.4); Potassium 3.4 mmol/L (3.5-5.1)
--- NOTE | 2018-11-07 07:54 | History & Physical Bridge Note ---
Date of Service November 07, 2018 History & Physical Bridge Note I have examined the patient, reviewed the History & Physical and in the interval since the performance of the History & Physical I have noted the following changes of clinical significance: no changes noted
[2018-11-07] MEDS ORDERED: ALBUMIN HUMAN 5% 12.5 GM/250 ML VIAL IV ONE (08:07)
[2018-11-07] MEDS ORDERED: MIDAZOLAM HCL 1 MG/ML 2ML VIAL ONE (08:35)
[2018-11-07] MEDS ORDERED: fentaNYL citrate 100 MCG/2 ML VIAL ONE ×2 (08:35→10:02)
[2018-11-07] MEDS ORDERED: POTASSIUM CHLORIDE / WTR 10 MEQ/100 ML PLCT IV ONE (09:15)
[2018-11-07] MEDS ORDERED: ePHEDrine sulfate 50 MG/ML AMP IV PRN (09:18)
[2018-11-07] MEDS ORDERED: ONDANSETRON INJ 2 MG/ML 2 ML VIAL IV PRN (09:18)
[2018-11-07] MEDS ORDERED: ATROPINE SULFATE 0.1 MG/ML 5ML SYR IV PRN (09:18)
[2018-11-07] MEDS ORDERED: HYDROmorphone INJ 2 MG/ML SYR/VIAL ONE (09:20)
[2018-11-07] MEDS ORDERED: LACTATED RINGER'S 1,000 ML IV SCH (09:30)
[2018-11-07] MEDS ORDERED: ONDANSETRON INJ 2 MG/ML 2 ML VIAL ONE (10:53)
[2018-11-07] MEDS ORDERED: PROPOFOL IV EMULSION 10 MG/ML 20 ML VIAL IV ONE (10:53)
[2018-11-07] MEDS ORDERED: GLYCOPYRROLATE 0.2 MG/ML VIAL ONE ×2 (10:53→11:23)
[2018-11-07] MEDS ORDERED: NEOSTIGMINE METHYLSULFATE 5 MG/5 ML SYR ONE (10:53)
[2018-11-07] MEDS ORDERED: ePHEDrine sulfate 50 MG/ML SYR ONE (10:53)
[2018-11-07] MEDS ORDERED: SUCCINYLCHOLINE CHLORIDE 20 MG/ML 10 ML VIAL ONE (10:53)
[2018-11-07] MEDS ORDERED: LIDOCAINE HCL 2% 2 ML VIAL/AMP(20MG/ML) INFIL ONE (10:53)
[2018-11-07] MEDS ORDERED: ROCURONIUM BROMIDE 10 MG/ML 5 ML VIAL ONE (10:53)
[2018-11-07] MEDS ORDERED: DEXAMETHASONE SOD INJ 4 MG/ML VIAL ONE (10:53)
--- NOTE | 2018-11-07 11:25 | Post Operative Brief Note ---
Immediate Post Op Note v1 Date of Surgery November 07, 2018 Pre & Post Diagnosis Operation Date: 11/07/18 08:15 Pre-Op Diagnosis: SMALL BOWEL OBSTRUCTION Post-Op Diagnosis: SMALL BOWEL OBSTRUCTION Procedure Operation Date: 11/07/18 08:15 Actual Procedures p Exploratory Laparotomy, Lysis of Adhesions(Not Applicable) - Eddie Hidalgo MD Surgeon Eddie Hidalgo MD Massage Therapist BRIGITTE Goodson Estimated Blood Loss 30 Findings Consistent with Post-Op Diagnosis adhesion caused SBO Fluids 1200ml Specimens none Drains King Catheter and Waldo-Horn Drain (10 flat) Anesthesia Type General Complications none Disposition Accompanied Patient To Recovery: Yes Disposition: Recovery Room Overlapping Procedure I was immediately available: during the entire case.
[2018-11-07] MEDS: fentaNYL citrate 100 MCG/2 ML VIAL IV PRN ×4 (12:01→12:49)
--- NOTE | 2018-11-07 12:05 | Operative Report ---
DATE OF OPERATION: 11/07/2018 PREOPERATIVE DIAGNOSIS: Small bowel obstruction. POSTOPERATIVE DIAGNOSIS: Small bowel obstruction. OPERATION: Exploratory laparotomy, lysis of adhesion. SURGEON: Eddie Hidalgo MD CASTING MACHINE SERVICE OPERATOR: BRIGITTE Jama ANESTHESIA: General. ESTIMATED BLOOD LOSS: About 30 mL. FINDINGS: Adhesion causing small bowel obstruction. COMPLICATIONS: None. INDICATIONS FOR THE PROCEDURE: This is a 73-year-old gentleman who was admitted to the hospital for small bowel obstruction. Patient had 5 days of conservative treatment; however, the conservative treatment failed, so patient was required to do exploratory laparotomy, possible bowel resection, possible stoma. I did talk to patient about the benefits, risks, and alternate procedure. I indicated the risks which may include but not limited to bleeding, infection, injury to the bowel, myocardial infarction, DVT, stroke, even , incisional hernia. Patient and patient's family member understood. They agreed to proceed with procedure. I answered all questions. DETAILS OF PROCEDURE: We brought in patient to the OR, put the patient in the supine position. Patient received SCD on bilateral legs to prevent DVT. Also, patient received 3.375 g Zosyn IV for prophylactic antibiotic. Patient received general anesthesia without difficulty. Also, patient received King catheter insertion. The abdomen was prepped and draped in routine sterile fashion. After timeout, I made a lower midline incision, opened fascia, opened peritoneum under direct vision into abdomen without difficulty. There was some free fluid in the abdomen. We removed some free fluid in the abdomen, and then, we found the patient had adhesion causing small bowel obstruction, multiple adhesions, so we took down all the adhesions using a sharp scissor, and all the collapsed distal small bowel was opened. Also, hemostasis was obtained. Once all the scar was taken down, the small bowel to large bowel was pending. We then put a 10 mm SCARLET drainage. I used 3-0 nylon to fix the SCARLET drainage around the right lower quadrant skin. We then closed the abdomen and fascial layer by using #1 PDS continuous running, closed the subcutaneous layer by using 2-0 Vicryl continuous running, closed skin by using staple. We then put the dressing on. The patient tolerated the procedure well. All the instrument, needle, and sponge counts correct x2 at the end of the case. Patient transferred to recovery room in stable condition. After procedure, I did talk to patient and family member about the OR finding and procedure we did, they understood. I attest to the content of the Intraoperative Record and any orders documented therein. Any exception s are noted below.
[2018-11-07] MEDS ORDERED: PROMETHAZINE HCL 12.5 MG in SODIUM CHLORIDE 0.9% 50 ML IV PRN (12:37)
[2018-11-07] MEDS: HydrALAZINE HCL 20 MG/ML VIAL IV STA ×2 (12:45→14:42)
[2018-11-07] MEDS: HYDROmorphone INJ 1 MG/ML SYRINGE IV PRN ×2 (12:57→13:07)
--- NOTE | 2018-11-07 13:48 | Anesthesiology Progress Note ---
Date of Service November 07, 2018 Anesthesia Post Procedure Vital Signs Vital Signs: Temp Pulse Pulse Resp BP BP Pulse Ox 11/07/18 13:30 78 15 157/84 H 92 11/07/18 13:20 36.9 C 83 16 142/88 H 92 11/07/18 13:15 75 17 192/82 H 92 11/07/18 13:05 77 17 177/66 H 91 11/07/18 12:55 74 16 189/101 H 94 11/07/18 12:45 75 15 202/94 H 94 11/07/18 12:35 71 13 183/95 H 97 11/07/18 12:25 69 15 184/95 H 97 11/07/18 12:15 69 16 196/93 H 97 11/07/18 12:05 65 16 177/90 H 94 11/07/18 11:55 72 16 172/106 H 95 11/07/18 11:48 36.4 C L 66 15 187/99 H 95 11/07/18 07:31 36.9 C 55 L 16 158/80 H 93 11/07/18 06:57 36.6 C 59 L 17 147/83 H 92 11/06/18 23:03 36.9 C 71 18 148/76 H 90 11/06/18 16:37 159/78 H 11/06/18 15:26 36.8 C 59 L 18 179/87 H 92 Pain Intensity Bilateral Abdomen: Pain Intensity: 4 Notes Mental Status: alert / awake / arousable and participated in evaluation Patient Amnestic to Procedure: Yes Nausea / Vomiting: adequately controlled Pain: adequately controlled Airway Patency, RR, SpO2: stable & adequate BP & HR: stable & adequate Hydration State: stable & adequate Anesthetic Complications: no major complications apparent and Pt Satisfied with anesthetic care
[2018-11-07] MEDS: D5W AND 1/2NSS + 20MEQ KCL 20 MEQ/1,000 ML BAG IV SCH (15:29)
[2018-11-07] MEDS: PANTOprazole 40 MG in SYRINGE 0 ML IV SCH (17:13)
[2018-11-07] MEDS ORDERED: Nursing to Pharmacy Communication ONE (19:09)
--- NOTE | 2018-11-07 20:21 | Hospitalist Progress Note ---
Date of Service November 07, 2018 Assessment & Plan (1) Small bowel obstruction: despite conservative measures this admission his SBO did not resolve. he is now s/p ex lap today with THERON and release of the small bowel. defer post-op management to gen surg. (2) Coronary artery disease: no recent ischemic symptoms. seen by cardiology - no preop testing advised. from CV standpoint he was optimized for surgery. I spoke with Dr. Menchaca today and previous outpatient echo showed preserved EF with no valvular heart issues. (3) Hypertension: adequate control at this time (4) Anxiety: no issues (5) Hyperlipidemia: holding his statin (6) GERD (gastroesophageal reflux disease): IV PPI (7) Hypokalemia: KCL 10meq IV x 1 repeat BMP in am (8) Lethargy: if this persists tonight then check VBG to r/o hypercarbia I discussed this plan of care w/ nursing staff and asked them to contact our team if the lethargy did not resolve shortly otherwise this is likely due to his anesthesia, pain meds, etc. (9) DVT prophylaxis: lovenox daily Subjective patient was quite sleepy during my visit he had returned from the OR about 2 hours prior to my visit he did awake when I called his name he asked "How did everything go?" he c/o abdominal pain unable to obtain full ROS otherwise due to lethargy Physical Exam 2 Vital Signs (Past 24 Hours): Last Vital Signs Temp 36.7 C 11/07/18 17:33 Pulse 81 11/07/18 17:33 Resp 20 11/07/18 17:33 BP 151/82 H 11/07/18 17:33 Pulse Ox 92 11/07/18 17:33 Constitutional: well developed and well nourished; no acute distress sleepy Eyes: PERRL, conjunctivae normal, anicteric sclerae ENMT: external ear and nose normal, oropharynx normal Respiratory: normal respiratory effort, lungs clear to auscultation Cardiovascular: Rate/Rhythm: regular rate and regular rhythm Heart Sounds: normal S1 and normal S2; no murmur Vessels: posterior tibial pulses present and dorsalis pedis pulses present; no JVD Gastrointestinal (Abdomen): Inspection/Auscultation: + abdomen distended and normal bowel sounds Percussion/Palpation: + abdomen tender (diffuse); no guarding and no hepatosplenomegaly drain in place; abd binder in place Psychiatric: sleepy but oriented, at minimum, to person and place Results & Data Laboratory Results Laboratory Results - last 24 hr 11/06/18 11/07/18 20:08 06:46 Sodium 138 Potassium 3.4 L Chloride 105 Carbon Dioxide 23 Anion Gap 10.0 BUN 14 Creatinine 0.99 Est Cr Clr Drug Dosing 77.2 Est GFR ( Amer) 87.8 Est GFR (Non-Af Amer) 75.8 BUN/Creatinine Ratio 14.6 Glucose 86 Calcium 8.0 L Magnesium 2.2 Blood Type O Positive Antibody Screen NEGATIVE _ (1) Coronary artery disease Associated angina: without angina Coronary Disease-Associated Artery/Lesion type: [place] artery [place] vs. transplanted heart: [place] heart Qualified Code (s): I25.10 - Atherosclerotic heart disease of [place] coronary artery without angina pectoris (2) Hyperlipidemia Hyperlipidemia type: unspecified Qualified Code(s): E78.5 - Hyperlipidemia, unspecified (3) GERD (gastroesophageal reflux disease) Esophagitis presence: esophagitis presence not specified Qualified Code(s): K21.9 - Gastro-esophageal reflux disease without esophagitis (4) Hypertension Hypertension type: essential hypertension Qualified Code(s): I10 - Essential (primary) hypertension
[2018-11-08] MEDS: D5W AND 1/2NSS + 20MEQ KCL 20 MEQ/1,000 ML BAG IV SCH ×3 (01:34→21:27)
[2018-11-08] MEDS: SODIUM CHLORIDE 0.9% 1000ML 1,000 ML IV SCH (01:57)
[2018-11-08] MEDS: HYDROmorphone INJ 0.5 MG/0.5 ML SYR IV PRN ×4 (02:31→17:35)
[2018-11-08] MEDS: PIPERACILLIN/TAZOBACTAM 3.375 GM in DEXTROSE 5% 100 ML IV SCH ×3 (06:40→22:09)
[2018-11-08 07:06] LABS: Basophils # (auto) 0.01 K/uL (0-0.2); Basophils % (auto) 0.1 %; Eosinophils # (auto) 0.04 K/uL (0-0.5); Eosinophils % (auto) 0.5 %; Hematocrit (blood only) 37.7 % (42-52); Hemoglobin 13.1 g/dL (14.0-18.0); Immature Granulocytes # (auto) 0.02 K/uL (0.00-0.02); Immature Granulocytes % (auto) 0.2 %; Lymphocytes # (auto) 1.16 K/uL (1.2-3.4); Lymphocytes % (auto) 14.3 %; Mean Corpuscular Hgb Conc 34.7 g/dL (32-36); Mean Corpuscular Volume 91.3 fL (80-100); Mean Platelet Volume 9.9 fL (7.4-10.4); Monocytes # (auto) 1.42 K/uL (0.11-0.59); Monocytes % (auto) 17.5 %; Neutrophils # (auto) 5.46 K/uL (1.4-6.5); Neutrophils % (auto) 67.4 %; Platelet Count 176 K/uL (130-400); RDW Coefficient of Variation 12.6 % (11.5-14.5); Red Blood Count 4.13 M/uL (4.7-6.1); White Blood Count 8.11 K/uL (4.8-10.8)
[2018-11-08 07:38] LABS: BUN Creatinine Ratio 10.2 (10-20); Calcium 8.1 mg/dl (8.5-10.1); Creatinine Clr Calc Pharmacy 75.6 ml/min; Est GFR (African American) 85.7; Potassium 3.6 mmol/L (3.5-5.1)
[2018-11-08] MEDS: ENOXAPARIN INJ 40 MG/0.4 ML SYR SQ SCH (09:03)
[2018-11-08] MEDS ORDERED: BISACODYL 5 MG TABEC PO ONE (09:13)
[2018-11-08] MEDS ORDERED: POLYETHYLENE (MIRALAX) 17 GM PACK PO STA (09:13)
[2018-11-08] MEDS ORDERED: ACETAMINOPHEN 325 MG TAB PO PRN (09:16)
--- NOTE | 2018-11-08 09:20 | Surgery Progress Note ---
Date of Service November 08, 2018 Assessment & Plan (1) Small bowel obstruction: POD # 1 s/p exploratory laparotomy extensive lysis of adhesions - vitals stable, afebrile - moderate post op pain controlled - NGT with little output (110 cc) post op - abdomen soft, mildly distended - no return of bowel function yet Plan: Start PO Tylenol and Percocet prn pain, IV Dilaudid for breakthrough Discontinue NGT Sips of clears, advised to take really slow Miralax and Dulcolax PO now IV Reglan 10 mg q 8 hours for 2 days Discontinue King catheter OOB to chair and ambulate SCDS and Lovenox for DVT prophylaxis repeat am labs Dr. Gonzalez covering this weekend Dr. Hidalgo has seen patient agrees with above. Subjective Feeling okay this morning no flatus yet moderate abdominal pain no nausea or vomiting Physical Exam 2 Vital Signs (Past 24 Hours): Last Vital Signs Temp 36.7 C 11/08/18 07:46 Pulse 68 11/08/18 07:46 Resp 16 11/08/18 07:46 BP 138/88 11/08/18 07:46 Pulse Ox 93 11/08/18 07:46 Constitutional: WD/WN, vitals as above no acute distress Respiratory: no respiratory distress, no labored breathing, no retractions and does not use accessory muscles Gastrointestinal (Abdomen): Inspection/Auscultation: + abdomen distended ( mildly) and + abdominal surgical drain present (bloody serosanguineous) Percussion/Palpation: + abdomen tender and abdomen soft; no guarding and abdomen not rigid Skin: no rashes, warm and dry + incision (Midline incision with dry dressing in place, incision not inspected) Psychiatric: A+Ox3, euthymic affect Results & Data Laboratory Results 11/08/18 11/08/18 Range/Units 06:34 06:34 WBC 8.11 (4.8-10.8) K/uL RBC 4.13 L (4.7-6.1) M/uL Hgb 13.1 L (14.0-18.0) g/dL Hct 37.7 L (42-52) % MCV 91.3 (80-100) fL MCH 31.7 (25-34) pg MCHC 34.7 (32-36) g/dL RDW Std Deviation 42.0 (36.4-46.3) fL RDW Coeff of Bk 12.6 (11.5-14.5) % Plt Count 176 (130-400) K/uL MPV 9.9 (7.4-10.4) fL Immature Gran % (Auto) 0.2 % Neut % (Auto) 67.4 % Lymph % (Auto) 14.3 % [place] % (Auto) 17.5 % Eos % (Auto) 0.5 % Baso % (Auto) 0.1 % Immature Gran # (Auto) 0.02 (0.00-0.02) K/uL Neut # (Auto) 5.46 (1.4-6.5) K/uL Lymph # (Auto) 1.16 L (1.2-3.4) K/uL [place] # (Auto) 1.42 H (0.11-0.59) K/uL Eos # (Auto) 0.04 (0-0.5) K/uL Baso # (Auto) 0.01 (0-0.2) K/uL Sodium 137 (136-145) mmol/L Potassium 3.6 (3.5-5.1) mmol/L Chloride 104 (98-107) mmol/L Carbon Dioxide 28 (21-32) mmol/L Anion Gap 5.0 (3-11) BUN 10 (7-18) mg/dl Creatinine 1.01 (0.6-1.4) mg/dl Est Cr Clr Drug Dosing 75.6 ml/min Est GFR ( Amer) 85.7 Est GFR (Non-Af Amer) 74.0 BUN/Creatinine Ratio 10.2 (10-20) Glucose 131 H (70-99) mg/dl Calcium 8.1 L (8.5-10.1) mg/dl
--- NOTE | 2018-11-08 10:34 | Anesthesiology Progress Note ---
Date of Service November 08, 2018 Anesthesia Post Procedure Vital Signs Vital Signs: Temp Pulse Pulse Pulse Resp BP BP 11/08/18 07:46 36.7 C 68 16 138/88 11/08/18 03:47 36.6 C 69 17 155/83 H 11/07/18 22:47 36.6 C 69 17 147/87 H 11/07/18 20:34 36.7 C 73 18 145/79 H 11/07/18 20:00 11/07/18 17:33 36.7 C 81 20 151/82 H 11/07/18 16:24 36.5 C 83 20 152/79 H 11/07/18 15:24 36.9 C 80 20 142/78 H 11/07/18 14:55 77 20 153/77 H 11/07/18 14:25 36.8 C 87 16 151/78 H 11/07/18 13:40 83 15 164/88 H 11/07/18 13:30 78 15 157/84 H 11/07/18 13:20 36.9 C 83 16 142/88 H 11/07/18 13:15 75 17 192/82 H 11/07/18 13:05 77 17 177/66 H 11/07/18 12:55 74 16 189/101 H 11/07/18 12:45 75 15 202/94 H 11/07/18 12:35 71 13 183/95 H 11/07/18 12:25 69 15 184/95 H 11/07/18 12:15 69 16 196/93 H 11/07/18 12:05 65 16 177/90 H 11/07/18 11:55 72 16 172/106 H 11/07/18 11:48 36.4 C L 66 15 187/99 H Pulse Ox Pulse Ox 11/08/18 07:46 93 11/08/18 03:47 94 11/07/18 22:47 95 11/07/18 20:34 93 11/07/18 20:00 94 11/07/18 17:33 92 11/07/18 16:24 93 11/07/18 15:24 93 11/07/18 14:55 93 11/07/18 14:25 92 11/07/18 13:40 94 11/07/18 13:30 92 11/07/18 13:20 92 11/07/18 13:15 92 11/07/18 13:05 91 11/07/18 12:55 94 11/07/18 12:45 94 11/07/18 12:35 97 11/07/18 12:25 97 11/07/18 12:15 97 11/07/18 12:05 94 11/07/18 11:55 95 11/07/18 11:48 95 Notes Mental Status: alert / awake / arousable and participated in evaluation Patient Amnestic to Procedure: Yes Nausea / Vomiting: adequately controlled Pain: adequately controlled Airway Patency, RR, SpO2: stable & adequate BP & HR: stable & adequate Hydration State: stable & adequate Anesthetic Complications: no major complications apparent and Pt Satisfied with anesthetic care
[2018-11-08] MEDS: METOCLOPRAMIDE HCL INJ 5 MG/ML 2 ML VIAL IV SCH ×2 (10:37→17:11)
[2018-11-08] MEDS: PANTOprazole 40 MG in SYRINGE 0 ML IV SCH (10:38)
[2018-11-08] MEDS: OXYCODONE/ACETAMINOPHEN 5mg/325mg TAB PO PRN ×2 (14:26→21:34)
--- NOTE | 2018-11-08 19:53 | Hospitalist Progress Note ---
Date of Service November 08, 2018 Assessment & Plan (1) Small bowel obstruction: despite conservative measures this admission his SBO did not resolve. he is now POD#1 s/p ex lap on 11/07/18 with THERON and release of the small bowel. defer post-op management to gen surg. NGT out today, tolerating clears, King out -continue pain control -adv diet as tolerated -follow lytes and replace as needed (2) Coronary artery disease: no recent ischemic symptoms. seen by cardiology - no preop testing advised. from CV standpoint he was optimized for surgery. Previous hospitalist spoke with Dr. Menchaca and previous outpatient echo showed preserved EF with no valvular heart issues. -restart statin in the AM -will check with Surgery if ok to restart home ASA 81mg daily in the morning (3) Hypertension: BPs mildly elevated -will restart home losartan but at lower dose for now of 50mg (4) Anxiety: no issues -restart home Buspar now that carri po (5) Hyperlipidemia: restart statin (6) GERD (gastroesophageal reflux disease): IV PPI -can revert back to po Zantac on dc (7) Hypokalemia: improved s/p replacement repeat BMP in am (8) Lethargy: otherwise this is likely due to his anesthesia, pain meds, etc.--> now resolved (9) DVT prophylaxis: lovenox daily Dispo-remain on med/surg floor, expect at least 2-3 more days of hospital stay to regain bowel function Subjective DOing well today. Having some abd pain but the abd binder helps. No flatus yet but had clears today and no nausea. No BM yet. No CP or SOB. King is out and he is voiding on his own Review of Systems All systems reviewed & are unremarkable except as noted in HPI & below Physical Exam 2 Vital Signs (Past 24 Hours): Last Vital Signs Temp 36.6 C 11/08/18 15:44 Pulse 71 11/08/18 15:44 Resp 18 11/08/18 15:44 BP 151/84 H 11/08/18 15:44 Pulse Ox 91 11/08/18 15:44 Constitutional: WD/WN, vitals as above Eyes: PERRL, conjunctivae normal, anicteric sclerae ENMT: Ears: no hearing impairment Neck: trachea midline, no thyromegaly Respiratory: normal respiratory effort, lungs clear to auscultation Cardiovascular: RRR, no murmur, no edema Gastrointestinal (Abdomen): Inspection/Auscultation: + hypoactive bowel sounds ; + abdomen abnormal to inspection (midline incision with dressing in place c/d/ i, binder in place) Percussion/Palpation: + abdomen tender (over incision site) and abdomen soft Musculoskeletal: Extremities: extremities normal to inspection; no cyanosis and no clubbing Skin: no rashes, warm and dry Neurologic: moves all extremities and awake; no focal motor deficits Psychiatric: A+Ox3, euthymic affect Results & Data Laboratory Results 11/08/18 11/08/18 Range/Units 06:34 06:34 WBC 8.11 (4.8-10.8) K/uL RBC 4.13 L (4.7-6.1) M/uL Hgb 13.1 L (14.0-18.0) g/dL Hct 37.7 L (42-52) % MCV 91.3 (80-100) fL MCH 31.7 (25-34) pg MCHC 34.7 (32-36) g/dL RDW Std Deviation 42.0 (36.4-46.3) fL RDW Coeff of Bk 12.6 (11.5-14.5) % Plt Count 176 (130-400) K/uL MPV 9.9 (7.4-10.4) fL Immature Gran % (Auto) 0.2 % Neut % (Auto) 67.4 % Lymph % (Auto) 14.3 % [place] % (Auto) 17.5 % Eos % (Auto) 0.5 % Baso % (Auto) 0.1 % Immature Gran # (Auto) 0.02 (0.00-0.02) K/uL Neut # (Auto) 5.46 (1.4-6.5) K/uL Lymph # (Auto) 1.16 L (1.2-3.4) K/uL [place] # (Auto) 1.42 H (0.11-0.59) K/uL Eos # (Auto) 0.04 (0-0.5) K/uL Baso # (Auto) 0.01 (0-0.2) K/uL Sodium 137 (136-145) mmol/L Potassium 3.6 (3.5-5.1) mmol/L Chloride 104 (98-107) mmol/L Carbon Dioxide 28 (21-32) mmol/L Anion Gap 5.0 (3-11) BUN 10 (7-18) mg/dl Creatinine 1.01 (0.6-1.4) mg/dl Est Cr Clr Drug Dosing 75.6 ml/min Est GFR ( Amer) 85.7 Est GFR (Non-Af Amer) 74.0 BUN/Creatinine Ratio 10.2 (10-20) Glucose 131 H (70-99) mg/dl Calcium 8.1 L (8.5-10.1) mg/dl _ (1) Coronary artery disease Associated angina: without angina Coronary Disease-Associated Artery/Lesion type: [place] artery [place] vs. transplanted heart: [place] heart Qualified Code (s): I25.10 - Atherosclerotic heart disease of [place] coronary artery without angina pectoris (2) Hyperlipidemia Hyperlipidemia type: unspecified Qualified Code(s): E78.5 - Hyperlipidemia, unspecified (3) GERD (gastroesophageal reflux disease) Esophagitis presence: esophagitis presence not specified Qualified Code(s): K21.9 - Gastro-esophageal reflux disease without esophagitis (4) Hypertension Hypertension type: essential hypertension Qualified Code(s): I10 - Essential (primary) hypertension
[2018-11-09] MEDS: HYDROmorphone INJ 0.5 MG/0.5 ML SYR IV PRN (00:46)
[2018-11-09] MEDS: METOCLOPRAMIDE HCL INJ 5 MG/ML 2 ML VIAL IV SCH ×3 (00:46→17:38)
[2018-11-09] MEDS: D5W AND 1/2NSS + 20MEQ KCL 20 MEQ/1,000 ML BAG IV SCH ×2 (06:11→16:21)
[2018-11-09] MEDS: PIPERACILLIN/TAZOBACTAM 3.375 GM in DEXTROSE 5% 100 ML IV SCH ×3 (06:11→22:18)
[2018-11-09 07:08] LABS: Hematocrit (blood only) 39.3 % (42-52); Hemoglobin 13.3 g/dL (14.0-18.0); Mean Corpuscular Hgb Conc 33.8 g/dL (32-36); Mean Corpuscular Volume 92.7 fL (80-100); Mean Platelet Volume 10.3 fL (7.4-10.4); Platelet Count 173 K/uL (130-400); RDW Coefficient of Variation 12.8 % (11.5-14.5); RDW Standard Deviation 43.3 fL (36.4-46.3); Red Blood Count 4.24 M/uL (4.7-6.1); White Blood Count 7.03 K/uL (4.8-10.8)
[2018-11-09 07:44] LABS: BUN Creatinine Ratio 7.7 (10-20); Calcium 8.1 mg/dl (8.5-10.1); Creatinine Clr Calc Pharmacy 68.2 ml/min; Est GFR (African American) 75.7; Est GFR (Non-African American) 65.3; Magnesium 2.2 mg/dl (1.8-2.4); Potassium 3.6 mmol/L (3.5-5.1)
[2018-11-09 07:45] LABS: Phosphorus 2.3 mg/dl (2.5-4.9)
--- NOTE | 2018-11-09 09:16 | Surgery Progress Note ---
Date of Service November 09, 2018 Assessment & Plan (1) Small bowel obstruction: POD 2 doing ok awaiting bowel fx keep on clears until return of bowel fx increase activity Subjective feeling better today denies pain no BM yet carri liquids Physical Exam 2 Vital Signs (Past 24 Hours): Last Vital Signs Temp 37.0 C 11/09/18 07:52 Pulse 71 11/09/18 07:52 Resp 18 11/09/18 07:52 BP 138/89 11/09/18 07:52 Pulse Ox 93 11/09/18 07:52 Physical Exam: alert/oriented. NAD abdomen: soft. +distended. exptected tenderness. wound looks good.
[2018-11-09] MEDS: OXYCODONE/ACETAMINOPHEN 5mg/325mg TAB PO PRN ×2 (09:48→16:28)
[2018-11-09] MEDS: ATORVASTATIN 40 MG TAB PO SCH (09:49)
[2018-11-09] MEDS: ENOXAPARIN INJ 40 MG/0.4 ML SYR SQ SCH (09:50)
[2018-11-09] MEDS: LOSARTAN POTASSIUM 50 MG TAB PO SCH (09:50)
[2018-11-09] MEDS ORDERED: POT PHOSPHATE MONOBASIC W/ SOD TAB PO STA (09:51)
[2018-11-09] MEDS: PANTOprazole 40 MG in SYRINGE 0 ML IV SCH (10:55)
--- NOTE | 2018-11-09 13:58 | Hospitalist Progress Note ---
Date of Service November 09, 2018 Assessment & Plan (1) Small bowel obstruction: despite conservative measures this admission his SBO did not resolve. he is now POD#2 s/p ex lap on 11/07/18 with THERON and release of the small bowel. defer post-op management to gen surg. NGT out on 11/08, tolerating clears, King out and voiding No return of bowel function yet but likely soon -continue pain control -continue clears until passes flatus -follow lytes and replace as needed -ambulating -continue IV reglan q8h (2) Coronary artery disease: no recent ischemic symptoms. seen by cardiology - no preop testing advised. from CV standpoint he was optimized for surgery. Previous hospitalist spoke with Dr. Menchaca and previous outpatient echo showed preserved EF with no valvular heart issues. -restarted statin -I did check with Surgery and it is ok to restart home ASA 81mg daily today (3) Hypertension: BPs controlled -continue losartan 50mg daily (home dose 100mg) (4) Anxiety: no issues --continue Buspar (5) Hyperlipidemia: -continue statin (6) GERD (gastroesophageal reflux disease): IV PPI -can revert back to po Zantac on dc (7) Hypokalemia: improved s/p replacement repeat BMP in am (8) Lethargy: in immediate post-op period--> now resolved (9) Hypophosphatemia: mildly low Phos today -replaced with [place] Phos 2 tabs po x 1 -follow phos in AM (10) DVT prophylaxis: lovenox daily Dispo-remain on med/surg floor, expect at least 2 more days of hospital stay to regain bowel function Subjective Pt feeling fairly well today. He is still having some abd pain but is improved. Still no flatus but is carri clears and denies nausea. He is ambulating the halls. Denies CP or SOB Review of Systems All systems reviewed & are unremarkable except as noted in HPI & below Physical Exam 2 Vital Signs (Past 24 Hours): Last Vital Signs Temp 37.0 C 11/09/18 07:52 Pulse 71 11/09/18 07:52 Resp 18 11/09/18 07:52 BP 138/89 11/09/18 07:52 Pulse Ox 93 11/09/18 07:52 Constitutional: WD/WN, vitals as above Eyes: PERRL, conjunctivae normal, anicteric sclerae ENMT: Ears: no hearing impairment Neck: trachea midline, no thyromegaly Respiratory: normal respiratory effort, lungs clear to auscultation Cardiovascular: RRR, no murmur, no edema Gastrointestinal (Abdomen): Inspection/Auscultation: normal bowel sounds; + abdomen abnormal to inspection (midline incision with dressing in place c/d/i, binder in place, SCARLET drain with small amount serosang fluid) Percussion/ Palpation: + abdomen tender (over incision site) and abdomen soft Musculoskeletal: Extremities: extremities normal to inspection; no cyanosis and no clubbing Skin: no rashes, warm and dry Neurologic: moves all extremities and awake; no focal motor deficits Psychiatric: A+Ox3, euthymic affect Results & Data Laboratory Results 11/09/18 11/09/18 Range/Units 06:50 06:50 WBC 7.03 (4.8-10.8) K/uL RBC 4.24 L (4.7-6.1) M/uL Hgb 13.3 L (14.0-18.0) g/dL Hct 39.3 L (42-52) % MCV 92.7 (80-100) fL MCH 31.4 (25-34) pg MCHC 33.8 (32-36) g/dL RDW Std Deviation 43.3 (36.4-46.3) fL RDW Coeff of Bk 12.8 (11.5-14.5) % Plt Count 173 (130-400) K/uL MPV 10.3 (7.4-10.4) fL Sodium 138 (136-145) mmol/L Potassium 3.6 (3.5-5.1) mmol/L Chloride 105 (98-107) mmol/L Carbon Dioxide 29 (21-32) mmol/L Anion Gap 4.0 (3-11) BUN 9 (7-18) mg/dl Creatinine 1.12 (0.6-1.4) mg/dl Est Cr Clr Drug Dosing 68.2 ml/min Est GFR ( Amer) 75.7 Est GFR (Non-Af Amer) 65.3 BUN/Creatinine Ratio 7.7 L (10-20) Glucose 127 H (70-99) mg/dl Calcium 8.1 L (8.5-10.1) mg/dl Phosphorus 2.3 L (2.5-4.9) mg/dl Magnesium 2.2 (1.8-2.4) mg/dl _ (1) Coronary artery disease Coronary Disease-Associated Artery/Lesion type: [place] artery [place] vs. transplanted heart: [place] heart Associated angina: without angina Qualified Code(s): I25.10 - Atherosclerotic heart disease of [place] coronary artery without angina pectoris (2) Hypertension Hypertension type: essential hypertension Qualified Code(s): I10 - Essential (primary) hypertension (3) Hyperlipidemia Hyperlipidemia type: unspecified Qualified Code(s): E78.5 - Hyperlipidemia, unspecified (4) GERD (gastroesophageal reflux disease) Esophagitis presence: esophagitis presence not specified Qualified Code(s): K21.9 - Gastro-esophageal reflux disease without esophagitis
[2018-11-09] MEDS: ASPIRIN 81 MG ECTAB PO SCH (15:59)
[2018-11-10] MEDS: OXYCODONE/ACETAMINOPHEN 5mg/325mg TAB PO PRN ×3 (00:24→18:26)
[2018-11-10] MEDS: METOCLOPRAMIDE HCL INJ 5 MG/ML 2 ML VIAL IV SCH (01:46)
[2018-11-10] MEDS: D5W AND 1/2NSS + 20MEQ KCL 20 MEQ/1,000 ML BAG IV SCH ×3 (01:48→23:50)
[2018-11-10 06:09] LABS: Basophils # (auto) 0.02 K/uL (0-0.2); Basophils % (auto) 0.3 %; Eosinophils # (auto) 0.53 K/uL (0-0.5); Eosinophils % (auto) 8.9 %; Hematocrit (blood only) 38.3 % (42-52); Hemoglobin 13.1 g/dL (14.0-18.0); Immature Granulocytes # (auto) 0.02 K/uL (0.00-0.02); Immature Granulocytes % (auto) 0.3 %; Lymphocytes # (auto) 1.21 K/uL (1.2-3.4); Lymphocytes % (auto) 20.4 %; Mean Corpuscular Hgb Conc 34.2 g/dL (32-36); Mean Platelet Volume 9.9 fL (7.4-10.4); Monocytes # (auto) 1.05 K/uL (0.11-0.59); Monocytes % (auto) 17.7 %; Neutrophils # (auto) 3.11 K/uL (1.4-6.5); Neutrophils % (auto) 52.4 %; Platelet Count 187 K/uL (130-400); RDW Coefficient of Variation 12.7 % (11.5-14.5); RDW Standard Deviation 43.3 fL (36.4-46.3); Red Blood Count 4.12 M/uL (4.7-6.1); White Blood Count 5.94 K/uL (4.8-10.8)
[2018-11-10] MEDS: PIPERACILLIN/TAZOBACTAM 3.375 GM in DEXTROSE 5% 100 ML IV SCH ×2 (06:27→14:33)
[2018-11-10 06:43] LABS: BUN Creatinine Ratio 6.9 (10-20); Creatinine Clr Calc Pharmacy 70.7 ml/min; Est GFR (African American) 79.1; Est GFR (Non-African American) 68.2; Magnesium 2.2 mg/dl (1.8-2.4)
[2018-11-10 06:47] LABS: Phosphorus 3.4 mg/dl (2.5-4.9)
--- NOTE | 2018-11-10 09:55 | Surgery Progress Note ---
Date of Service November 10, 2018 Assessment & Plan (1) Small bowel obstruction: doing ok. awaiting return of bowel fx increase activity would keep on clears until bowel fx Subjective no changes. denies pain. +flatus but no bm yet. no n/v Physical Exam 2 Vital Signs (Past 24 Hours): Last Vital Signs Temp 36.4 C L 11/10/18 07:39 Pulse 59 L 11/10/18 07:39 Resp 18 11/10/18 07:39 BP 153/93 H 11/10/18 07:39 Pulse Ox 93 11/10/18 07:39 Physical Exam: alert/oriented. nad abdomen: soft. minimal distension. nontender
[2018-11-10] MEDS: ENOXAPARIN INJ 40 MG/0.4 ML SYR SQ SCH (10:16)
[2018-11-10] MEDS: ASPIRIN 81 MG ECTAB PO SCH (10:17)
[2018-11-10] MEDS: LOSARTAN POTASSIUM 50 MG TAB PO SCH (10:17)
[2018-11-10] MEDS: ATORVASTATIN 40 MG TAB PO SCH (10:17)
[2018-11-10] MEDS: PANTOprazole 40 MG in SYRINGE 0 ML IV SCH (10:17)
--- NOTE | 2018-11-10 16:58 | Hospitalist Progress Note ---
Date of Service November 10, 2018 Assessment & Plan (1) Small bowel obstruction: Despite conservative measures this admission initially, his SBO did not resolve on its own. Now POD#3 s/p ex lap on 11/07/18 with THERON and release of the small bowel. Post-op management as per Gen Surg. NGT out on 11/08, tolerating clears, King out and voiding Passing flatus, no BM yet Lytes replete -continue pain control -continue clears diet and advance as per Surgery -ambulating -IV reglan q8h was given x 2 days and now discontinued -ok to stop Zosyn (2) Coronary artery disease: No ischemic symptoms. Seen by cardiology - no preop testing advised. From CV standpoint he was optimized for surgery. Previous hospitalist spoke with Dr. Menchaca and previous outpatient echo showed preserved EF with no valvular heart issues. -restarted statin and ASA 81mg daily (3) Hypertension: BPs controlled to slightly high -ok to increase losartan back to home dose of 100mg daily (4) Anxiety: no issues --continue Buspar (5) Hyperlipidemia: -continue statin (6) GERD (gastroesophageal reflux disease): Can switch to po PPI -can revert back to po Zantac on dc (7) Hypokalemia: improved s/p replacement (8) Lethargy: in immediate post-op period--> now resolved (9) Hypophosphatemia: resolved after replacement (10) DVT prophylaxis: lovenox daily Dispo-remain on med/surg floor, expect at least 2 more days of hospital stay to regain bowel function Subjective Pt feeling better, less abd pain today, is tolerating clears diet. Is finally passing flatus today, no BM yet but feels like it might come soon. Denies CP or SOB Review of Systems All systems reviewed & are unremarkable except as noted in HPI & below Physical Exam 2 Vital Signs (Past 24 Hours): Last Vital Signs Temp 36.6 C 11/10/18 15:46 Pulse 70 11/10/18 15:46 Resp 18 11/10/18 15:46 BP 147/85 H 11/10/18 15:46 Pulse Ox 95 11/10/18 15:46 Constitutional: WD/WN, vitals as above Eyes: PERRL, conjunctivae normal, anicteric sclerae ENMT: Ears: no hearing impairment Neck: trachea midline, no thyromegaly Respiratory: normal respiratory effort, lungs clear to auscultation Cardiovascular: RRR, no murmur, no edema Gastrointestinal (Abdomen): Inspection/Auscultation: normal bowel sounds; + abdomen abnormal to inspection (midline incision with dressing in place c/d/i, binder in place, SCARLET drain with small amount serosang fluid) Percussion/ Palpation: + abdomen tender (over incision site) and abdomen soft Musculoskeletal: Extremities: extremities normal to inspection; no cyanosis and no clubbing Skin: no rashes, warm and dry Neurologic: moves all extremities and awake; no focal motor deficits Psychiatric: A+Ox3, euthymic affect Results & Data Laboratory Results 11/10/18 11/10/18 Range/Units 05:54 05:54 WBC 5.94 (4.8-10.8) K/uL RBC 4.12 L (4.7-6.1) M/uL Hgb 13.1 L (14.0-18.0) g/dL Hct 38.3 L (42-52) % MCV 93.0 (80-100) fL MCH 31.8 (25-34) pg MCHC 34.2 (32-36) g/dL RDW Std Deviation 43.3 (36.4-46.3) fL RDW Coeff of Bk 12.7 (11.5-14.5) % Plt Count 187 (130-400) K/uL MPV 9.9 (7.4-10.4) fL Immature Gran % (Auto) 0.3 % Neut % (Auto) 52.4 % Lymph % (Auto) 20.4 % [place] % (Auto) 17.7 % Eos % (Auto) 8.9 % Baso % (Auto) 0.3 % Immature Gran # (Auto) 0.02 (0.00-0.02) K/uL Neut # (Auto) 3.11 (1.4-6.5) K/uL Lymph # (Auto) 1.21 (1.2-3.4) K/uL [place] # (Auto) 1.05 H (0.11-0.59) K/uL Eos # (Auto) 0.53 H (0-0.5) K/uL Baso # (Auto) 0.02 (0-0.2) K/uL Sodium 140 (136-145) mmol/L Potassium 4.0 (3.5-5.1) mmol/L Chloride 107 (98-107) mmol/L Carbon Dioxide 27 (21-32) mmol/L Anion Gap 6.0 (3-11) BUN 7 (7-18) mg/dl Creatinine 1.08 (0.6-1.4) mg/dl Est Cr Clr Drug Dosing 70.7 ml/min Est GFR ( Amer) 79.1 Est GFR (Non-Af Amer) 68.2 BUN/Creatinine Ratio 6.9 L (10-20) Glucose 116 H (70-99) mg/dl Calcium 8.0 L (8.5-10.1) mg/dl Phosphorus 3.4 D (2.5-4.9) mg/dl Magnesium 2.2 (1.8-2.4) mg/dl _ (1) Coronary artery disease Coronary Disease-Associated Artery/Lesion type: [place] artery [place] vs. transplanted heart: [place] heart Associated angina: without angina Qualified Code(s): I25.10 - Atherosclerotic heart disease of [place] coronary artery without angina pectoris (2) Hypertension Hypertension type: essential hypertension Qualified Code(s): I10 - Essential (primary) hypertension (3) Hyperlipidemia Hyperlipidemia type: unspecified Qualified Code(s): E78.5 - Hyperlipidemia, unspecified (4) GERD (gastroesophageal reflux disease) Esophagitis presence: esophagitis presence not specified Qualified Code(s): K21.9 - Gastro-esophageal reflux disease without esophagitis
[2018-11-11] MEDS: OXYCODONE/ACETAMINOPHEN 5mg/325mg TAB PO PRN ×2 (03:53→18:21)
[2018-11-11] MEDS: ENOXAPARIN INJ 40 MG/0.4 ML SYR SQ SCH (08:49)
[2018-11-11] MEDS: ASPIRIN 81 MG ECTAB PO SCH (08:49)
[2018-11-11] MEDS: LOSARTAN POTASSIUM 50 MG TAB PO SCH (08:49)
[2018-11-11] MEDS: ATORVASTATIN 40 MG TAB PO SCH (08:49)
[2018-11-11] MEDS: PANTOprazole 40 MG TAB PO SCH (08:50)
[2018-11-11] MEDS ORDERED: BISACODYL 10 MG SUPP PR STA (10:47)
[2018-11-11] MEDS ORDERED: POLYETHYLENE (MIRALAX) 17 GM PACK PO STA (11:11)
--- NOTE | 2018-11-11 14:35 | Surgery Progress Note ---
Date of Service November 11, 2018 Assessment & Plan (1) Small bowel obstruction: Postoperative day #4 status post oratory laparotomy with lysis of adhesions for release of small bowel obstruction Peristalsis has returned Advanced to full liquid diet and tolerating that If progress continues he can be placed on a soft low fiber diet tomorrow and if he tolerates that we will consider discharge in the afternoon Subjective Postop day #4 Feeling very well today Had a bowel movement this morning Passing gas Denies nausea and vomiting Tolerating full liquid diet Very little pain Physical Exam 2 Vital Signs (Past 24 Hours): Last Vital Signs Temp 36.3 C L 11/11/18 11:36 Pulse 60 11/11/18 11:36 Resp 16 11/11/18 11:36 BP 160/92 H 11/11/18 11:36 Pulse Ox 92 11/11/18 07:12 Gastrointestinal (Abdomen): Inspection/Auscultation: + abdominal surgical incision (Clean, dry and intact); abdomen not distended Percussion/Palpation : + abdomen tender (Minimal) and abdomen soft
--- NOTE | 2018-11-11 18:25 | Hospitalist Progress Note ---
Date of Service November 11, 2018 Assessment & Plan (1) Small bowel obstruction: Despite conservative measures this admission initially, his SBO did not resolve on its own. Now POD#4 s/p ex lap on 11/07/18 with THERON and release of the small bowel. Post-op management as per Gen Surg. NGT out on 11/08, tolerating clears, King out and voiding Passing flatus and now having BMs Doing very well -continue pain control -continue full liquids diet and advance to low fiber soft in the AM, possible dc to home tomorrow as per SUrgery -ambulating -IV reglan q8h was given x 2 days and now discontinued -have since stopped the empiric Zosyn (2) Coronary artery disease: No ischemic symptoms. Seen by cardiology - no preop testing advised. From CV standpoint he was optimized for surgery. Previous hospitalist spoke with Dr. Menchaca and previous outpatient echo showed preserved EF with no valvular heart issues. -continue statin and ASA 81mg daily (3) Hypertension: BPs controlled to slightly high at times likely secondary to pain -continue home dose of losartan 100mg daily (4) Anxiety: no issues --continue Buspar (5) Hyperlipidemia: -continue statin (6) GERD (gastroesophageal reflux disease): -continue PPI -can revert back to po Zantac on dc (7) Hypokalemia: improved s/p replacement (8) Lethargy: in immediate post-op period--> now resolved (9) Hypophosphatemia: resolved after replacement (10) DVT prophylaxis: lovenox daily Dispo-remain on med/surg floor, possibly dc to home tomorrow if tolerating soft , low fiber diet Subjective Pt feeling great today. He had a small BM this AM and then just had another one this afternoon before I saw him. He feels some pain at incision site, but controlled. he denies CP or SOB. He is ambulating the halls. No nausea, is tolerating full liquids diet. Review of Systems All systems reviewed & are unremarkable except as noted in HPI & below Physical Exam 2 Vital Signs (Past 24 Hours): Last Vital Signs Temp 36.6 C 11/11/18 15:39 Pulse 65 11/11/18 15:39 Resp 18 11/11/18 15:39 BP 170/90 H 11/11/18 15:39 Pulse Ox 94 11/11/18 15:39 Constitutional: WD/WN, vitals as above Eyes: PERRL, conjunctivae normal, anicteric sclerae ENMT: Ears: no hearing impairment Neck: trachea midline, no thyromegaly Respiratory: normal respiratory effort, lungs clear to auscultation Cardiovascular: RRR, no murmur, no edema Gastrointestinal (Abdomen): Inspection/Auscultation: normal bowel sounds; + abdomen abnormal to inspection (midline incision with dressing in place c/d/i, binder in place, SCARLET drain with small amount serosang fluid) Percussion/ Palpation: + abdomen tender (over incision site) and abdomen soft Musculoskeletal: Extremities: extremities normal to inspection; no cyanosis and no clubbing Skin: no rashes, warm and dry Neurologic: moves all extremities and awake; no focal motor deficits Psychiatric: A+Ox3, euthymic affect _ (1) Coronary artery disease Associated angina: without angina Coronary Disease-Associated Artery/Lesion type: [place] artery [place] vs. transplanted heart: [place] heart Qualified Code (s): I25.10 - Atherosclerotic heart disease of [place] coronary artery without angina pectoris (2) Hyperlipidemia Hyperlipidemia type: unspecified Qualified Code(s): E78.5 - Hyperlipidemia, unspecified (3) GERD (gastroesophageal reflux disease) Esophagitis presence: esophagitis presence not specified Qualified Code(s): K21.9 - Gastro-esophageal reflux disease without esophagitis (4) Hypertension Hypertension type: essential hypertension Qualified Code(s): I10 - Essential (primary) hypertension
[2018-11-12 06:37] LABS: Hematocrit (blood only) 40.7 % (42-52); Hemoglobin 13.6 g/dL (14.0-18.0); Mean Corpuscular Hgb Conc 33.4 g/dL (32-36); Mean Corpuscular Volume 92.7 fL (80-100); Mean Platelet Volume 10.8 fL (7.4-10.4); Platelet Count 242 K/uL (130-400); RDW Coefficient of Variation 12.7 % (11.5-14.5); RDW Standard Deviation 42.9 fL (36.4-46.3); Red Blood Count 4.39 M/uL (4.7-6.1); White Blood Count 5.78 K/uL (4.8-10.8)
[2018-11-12 07:07] LABS: Creatinine Clr Calc Pharmacy 65.9 ml/min; Est GFR (African American) 72.5; Est GFR (Non-African American) 62.6
--- NOTE | 2018-11-12 07:21 | Surgery Progress Note ---
Date of Service November 12, 2018 Assessment & Plan (1) Small bowel obstruction: Postoperative day #5 status post oratory laparotomy with lysis of adhesions for release of small bowel obstruction Peristalsis has returned Advanced to soft, low fiber diet If he tolerates a soft low fiber diet for breakfast and lunch, he would be ready for discharge from surgical standpoint. Discharge instructions have been discussed with him previously. He can follow-up next week for staple removal. The SCARLET drain would need to be discontinued prior to discharge. Subjective Postop day #5 Feeling very well today Continues to have bowel movements Passing gas Denies nausea and vomiting Tolerating full liquid diet Very little pain Physical Exam 2 Vital Signs (Past 24 Hours): Last Vital Signs Temp 36.7 C 11/11/18 23:19 Pulse 57 L 11/11/18 23:19 Resp 17 11/11/18 23:19 BP 143/86 H 11/11/18 23:19 Pulse Ox 92 11/11/18 23:19 Gastrointestinal (Abdomen): Inspection/Auscultation: normal bowel sounds and + abdominal surgical incision (Clean, dry and intact); abdomen not distended Percussion/Palpation: + abdomen tender (Minimal) and abdomen soft
[2018-11-12] MEDS: LOSARTAN POTASSIUM 50 MG TAB PO SCH (09:29)
[2018-11-12] MEDS: ATORVASTATIN 40 MG TAB PO SCH (09:29)
[2018-11-12] MEDS: PANTOprazole 40 MG TAB PO SCH (09:29)
[2018-11-12] MEDS: ASPIRIN 81 MG ECTAB PO SCH (09:30)
[2018-11-12] MEDS: ENOXAPARIN INJ 40 MG/0.4 ML SYR SQ SCH (09:30)
--- NOTE | 2018-11-12 12:28 | Discharge Summary ---
Date of Service November 12, 2018 Admission HPI Per Admitting Provider 73-year-old male states that around noon today he developed some severe periumbilical abdominal pain that built in intensity throughout the day. He says he has a history of somewhat similar on and off weekly episodes of abdominal pain that are more mild than today and usually resolves within an hour. He notes four episodes of vomiting earlier, some loose stools, and some left flank pain. He presents today because his pain is more severe than it has ever been before. No known fevers, trauma, acute pain elsewhere, or other acute concerns. Principal Diagnosis Small bowel obstruction Discharge Exam Constitutional WD/WN, vitals as above Eyes PERRL, conjunctivae normal, anicteric sclerae ENMT Ears: no hearing impairment Neck trachea midline, no thyromegaly Respiratory normal respiratory effort, lungs clear to auscultation Cardiovascular RRR, no murmur, no edema Gastrointestinal (Abdomen) Inspection/Auscultation: normal bowel sounds; + abdomen abnormal to inspection ( midline incision with dressing in place c/d/i, binder in place, SCARLET drain with small amount serosang fluid) Percussion/Palpation: + abdomen tender (over incision site) and abdomen soft Musculoskeletal Extremities: extremities normal to inspection; no cyanosis and no clubbing Skin no rashes, warm and dry Neurologic moves all extremities and awake; no focal motor deficits Psychiatric A+Ox3, euthymic affect Discharge Data Allergies Allergy/AdvReac Type Severity Reaction Status Date / Time No Known Allergies Allergy Verified 11/19/18 21:37 Consultations 11/06/18 11:49 Consult Cardiology Routine 11/02/18 22:34 Consult General Surgery Routine Procedures Performed Operation Date: 11/07/18 08:15 Actual Procedures p Exploratory Laparotomy, Lysis of Adhesions(Not Applicable) - Eddie Hidalgo MD Ordered Studies 11/02/18 18:04 CT abd pelvis wo con Stat KUB x 2 Hospital Course (1) Small bowel obstruction: Despite conservative measures this admission initially, his SBO did not resolve on its own. Now POD#5 s/p ex lap on 11/07/18 with THERON and release of the small bowel. Post-op management as per Gen Surg. NGT out on 11/08, tolerating clears, King out and voiding Passing flatus and now having BMs Doing very well -continue pain control -continue low fiber soft diet upon discharge later today -ambulating -IV reglan q8h was given x 2 days and now discontinued -have since stopped the empiric Zosyn -f/u with Surgery as outpt -SCARLET drain removed on day of discharge (2) Coronary artery disease: No ischemic symptoms. Seen by cardiology - no preop testing advised. From CV standpoint he was optimized for surgery. Previous hospitalist spoke with Dr. Menchaca and previous outpatient echo showed preserved EF with no valvular heart issues. -continue statin and ASA 81mg daily (3) Hypertension: BPs controlled to slightly high at times likely secondary to pain -continue home dose of losartan 100mg daily (4) Anxiety: no issues --continue Buspar (5) Hyperlipidemia: -continue statin (6) GERD (gastroesophageal reflux disease): -continue PPI -can revert back to po Zantac on dc (7) Hypokalemia: improved s/p replacement (8) Lethargy: in immediate post-op period--> now resolved (9) Hypophosphatemia: resolved after replacement (10) DVT prophylaxis: lovenox daily was provided Dispo-stable for dc to home Total Time Total Time Spent Total Time Spent (In Minutes): >30 min Total Time Includes: Examination of the Patient, Discharge Planning, Medication Reconciliation and Communication With Other Providers (Surgery) Discharge Plan Discharge Items Patient Disposition: Home - Self-Care Reason For Visit: SMALL BOWEL OBSTRUCTION Discharge Diagnosis: Small Bowel Obstruction Condition: Good Discharge Goals: Decrease discomfort, Improve disease control, Learn about illness and Therapeutic intervention Activity: Per 'Additional Instructions' section Driving/Machine Use Comment: No driving until seen by Surgeon Non-emergency contact: Primary Care Provider and Surgeon Call non-emergency contact if: you have any medication questions, your symptoms worsen, your pain is not controlled, your pain is worsening, your pain is unusual for you, your pain is concerning for you, you have a fever, your temperature is above 100.5, your wound has increased redness, your wound has increased drainage and your wound pain has increased Follow-up/Referrals: Marianna Keating [Primary Care Provider] - 11/19/18 6:30 pm (Please, follow up at Dr. Keating's office on SundayNov 19 at 6:30 pm. *If you need to change this appointment, call the office at [phone].) Diet: Heart Healthy and Low Fiber [facility] Provider Instructions: You were admitted with a small bowel obstruction caused by adhesions or scar tissue from your previous surgery. You had to have surgery to remove the scar tissue. In addition to following up with Surgery as below, you should follow up with your primary care physician within 1-2 weeks. No heavy lifting over 10 pounds for at least 6 weeks No strenuous activity until cleared by surgeon No submerging incision underwater for 2 weeks or until healed (no swimming, bathing, or hot tubs) No driving while taking narcotic pain medication or until you are pain free You may shower. Gently clean incision with soap and water and pat dry. Surgical elsie will be removed in surgical office in a few weeks, keep incision covered daily. Wear abdominal binder daily for support. Walking and light activity is encouraged daily to prevent blood clots from forming in your legs. You will be given prescription for narcotic pain medication (Percocet) for moderate to severe pain. Take as directed. This medication may cause drowsiness or constipation. May take extra strength Ibuprofen as needed for mild pain. (Take with food) If you are not taking Percocet, then you may take extra strength Tylenol for mild pain. To avoid constipation: Drink plenty of liquids daily, avoid foods that constipate, and daily walking. May take OTC stool softener (Colace) daily or twice a day while taking pain medication. If above measures do not work, you may take Miralax or Milk of Magnesia. Follow-up in surgical office in 1-2 weeks, please call office at [phone] to make an appointment. Prescriptions: New oxycodone-acetaminophen [Percocet] 5-325 mg Tablet 1 tab PO Q4H PRN (Reason: pain) Qty: 18 RF: 0 Continue atorvastatin 80 mg tablet 80 mg PO DAILY RF: 0 aspirin 81 mg Tablet,Delayed Release (Dr/Ec) 81 mg PO DAILY RF: 0 ranitidine HCl 150 mg Tablet 300 mg PO QAM RF: 0 buspirone 10 mg Tablet 10 mg PO BID RF: 0 losartan 100 mg tablet 100 mg PO DAILY RF: 0 Visit Report Forms: [employer], Smoking Cessation Stand-Alone Forms: Call Back Authorization, [employer], Opioid Pain Management, Work/School Release (Inpt) Discharge Orders: Discharge Order (Routine); Ordered 11/12/18 Ordered By: Yarelis Alexander Admission Data Admit Date/Time: 11/02/18 21:34 Attending Provider: Yarelis Alexander Admit Provider: Arnaldo Francis Primary Care Provider: Marianna Keating Other Providers: Teo Mayo ; Benny Isaacs ; Mauricio Govea ; Damian Menchaca Service: Medical Other Interventions: Discharge Summary Assessment (RN) Last Done: 11/12/18 12:34 Pending Studies at Discharge: No DC Date/Time DO NOT enter until pt leaves facility: 11/12/18 13:56
== END 2018-11-12 13:56 | disposition home or self-care (01) | DRG 336 ==
LOC: ED 17:48 → SUATTDRO 21:34 → 3N 21:34
DX: F41.9 Anxiety disorder, unspecified; K21.9 Gastro-esophageal reflux disease without esophagitis; K57.90 Diverticulosis of intestine, part unspecified, without perforation or abscess without bleeding; I25.10 Atherosclerotic heart disease of native coronary artery without angina pectoris; Z95.1 Presence of aortocoronary bypass graft; Z87.891 Personal history of nicotine dependence; N12 Tubulo-interstitial nephritis, not specified as acute or chronic; E78.5 Hyperlipidemia, unspecified; E83.39 Other disorders of phosphorus metabolism; E66.9 Obesity, unspecified; Z79.82 Long term (current) use of aspirin; E87.6 Hypokalemia; Z68.31 Body mass index [BMI] 31.0-31.9, adult; I25.2 Old myocardial infarction; I10 Essential (primary) hypertension; N17.9 Acute kidney failure, unspecified; K56.50 Intestinal adhesions [bands], unspecified as to partial versus complete obstruction